=== PATIENT | male | born 1950 | race Caucasian/White ===

== ENCOUNTER 2020-03-05 11:38 | Observation (INO) | payer MEDICARE ==
[~2020-03-05] VITALS: Ht 185.5 cm; Wt 78.9 kg
--- NOTE | 2020-03-05 11:55 | ED General ---
General Stated Complaint: SYNCOPE Source of Information: Patient Exam Limitations: No Limitations History of Present Illness Date Seen by Provider: Mar 05, 2020 Time Seen by Provider: 11:50 Initial Comments To ER by EMS from [facility] with reports of syncopal event. He was feeling fine, unloading his own groceries when he had a syncopal events, awakened on the ground. EMS arrived and found him to be in atrial fibrillation with rapid ventricular response, hypertensive. Mentation was normal. He was brought to the emergency room. He does not have a family physician, does not take any medications.Drinks 3-4 mixed drinks per day. States he feels back to normal now. Timing/Duration: 1/2 Hour Associated Systoms: Denies Symptoms Allergies and Home Medications Allergies Coded Allergies: No Known Allergies (Verified Allergy, Unknown, 09/24/05) Patient Home Medication List Home Medication List Reviewed: Yes Review of Systems Review of Systems Constitutional: see HPI EENTM: see HPI Respiratory: no symptoms reported Cardiovascular: see HPI; No chest pain, No palpitations; syncope Genitourinary: no symptoms reported Musculoskeletal: no symptoms reported Skin: no symptoms reported Psychiatric/Neurological: No Symptoms Reported Hematologic/Lymphatic: No Symptoms Reported Immunological/Allergic: no symptoms reported Physical Exam Vital Signs Vital Signs - First Documented 03/05/20 11:39 Temp 35.8 Pulse 126 Resp 40 B/P (MAP) 195/123 (147) Pulse Ox 99 O2 Delivery Room Air Capillary Refill : Height, Weight, BMI Height: '" Weight: lbs. oz. kg; BMI Method:Stated General Appearance: No Apparent Distress, WD/WN, Thin, Other (alert and orient ed, hypertensive at 196/119, hr 110 sinus with multifocal pvc) Eyes: Bilateral Eye Normal Inspection, Bilateral Eye PERRL, Bilateral Eye EOMI Neck: Full Range of Motion, Normal Inspection Respiratory: No Accessory Muscle Use, No Respiratory Distress Cardiovascular: Normal Peripheral Pulses, Irregularly Irregular Gastrointestinal: Non Tender, Soft Extremity: Normal Capillary Refill, Normal Inspection Neurologic/Psychiatric: Alert, Oriented x3 Skin: Normal Color, Warm/Dry Progress/Results/Core Measures Suspected Sepsis SIRS Temperature: Pulse: Respiratory Rate: Laboratory Tests 03/05/20 11:40: White Blood Count 9.6 Blood Pressure / Mean: Laboratory Tests 03/05/20 11:40: Creatinine 1.03, INR Comment 1.0, Platelet Count 252, Total Bilirubin 2.7H Results/Orders Lab Results Laboratory Tests Test 03/05/20 11:40 Range/Units White Blood Count 9.6 4.3-11.0 10^3/uL Red Blood Count 4.48 4.30-5.52 10^6/uL Hemoglobin 15.4 13.3-17.7 g/dL Hematocrit 45 40-54 % Mean Corpuscular Volume 101 H 80-99 fL Mean Corpuscular Hemoglobin 34 25-34 pg Mean Corpuscular Hemoglobin Concent 34 32-36 g/dL Red Cell Distribution Width 13.2 10.0-14.5 % Platelet Count 252 130-400 10^3/uL Mean Platelet Volume 9.7 9.0-12.2 fL Immature Granulocyte % (Auto) 0 % Neutrophils (%) (Auto) 62 42-75 % Lymphocytes (%) (Auto) 26 12-44 % Monocytes (%) (Auto) 9 0-12 % Eosinophils (%) (Auto) 2 0-10 % Basophils (%) (Auto) 1 0-10 % Neutrophils # (Auto) 5.9 1.8-7.8 10^3/uL Lymphocytes # (Auto) 2.5 1.0-4.0 10^3/uL Monocytes # (Auto) 0.8 0.0-1.0 10^3/uL Eosinophils # (Auto) 0.2 0.0-0.3 10^3/uL Basophils # (Auto) 0.1 0.0-0.1 10^3/uL Immature Granulocyte # (Auto) 0.0 0.0-0.1 10^3/uL Prothrombin Time 13.8 12.2-14.7 SEC INR Comment 1.0 0.8-1.4 Activated Partial Thromboplast Time 24 24-35 SEC Sodium Level 139 135-145 MMOL/L Potassium Level 3.3 L 3.6-5.0 MMOL/L Chloride Level 101 98-107 MMOL/L Carbon Dioxide Level 23 21-32 MMOL/L Anion Gap 15 H 5-14 MMOL/L Blood Urea Nitrogen 10 7-18 MG/DL Creatinine 1.03 0.60-1.30 MG/DL Estimat Glomerular Filtration Rate > 60 BUN/Creatinine Ratio 10 Glucose Level 130 H 70-105 MG/DL Calcium Level 9.5 8.5-10.1 MG/DL Corrected Calcium 9.3 8.5-10.1 MG/DL Magnesium Level 1.8 1.6-2.4 MG/DL Total Bilirubin 2.7 H 0.1-1.0 MG/DL Aspartate Amino Transf (AST/SGOT) 23 5-34 U/L Alanine Aminotransferase (ALT/SGPT) 13 0-55 U/L Alkaline Phosphatase 89 40-136 U/L Myoglobin 129.8 H 10.0-92.0 NG/ML Troponin I < 0.028 <0.028 NG/ML B-Type Natriuretic Peptide 186.8 H <100.0 PG/ML Total Protein 7.9 6.4-8.2 GM/DL Albumin 4.3 3.2-4.5 GM/DL Serum Alcohol < 10 <10 MG/DL My Orders Orders - LUIS MARQUEZ APRN Ct Head Wo-R/O Stroke (03/05/20 11:40) Cbc With Automated Diff (03/05/20 11:48) Comprehensive Metabolic Panel (03/05/20 11:48) Alcohol (03/05/20 11:48) Magnesium (03/05/20 11:48) Chest 1 View, Ap/Pa Only (03/05/20 11:48) Ekg Tracing (03/05/20 11:48) Myoglobin Serum (03/05/20 11:48) Protime With Inr (03/05/20 11:48) Partial Thromboplastin Time (03/05/20 11:48) O2 (03/05/20 11:48) Monitor-Rhythm Ecg Trace Only (03/05/20 11:48) Lipid Panel (03/06/20 06:00) Ed Iv/Invasive Line Start (03/05/20 11:48) BNP (03/05/20 11:48) Troponin I (03/05/20 11:48) Aspirin Chewable Tablet (Baby Aspirin Ch (03/05/20 12:00) Metoprolol Tartrate Injection (Lopressor (03/05/20 12:00) Magnesium 1 Gm/100 Ml Ivpb (Magnesium Mcfarland (03/05/20 12:00) Metoprolol Tartrate Injection (Lopressor (03/05/20 12:15) Echo W Doppler/Color Flow (03/05/20 12:27) Medications Given in ED Current Medications Medications Dose Ordered Sig/Clint Route Start Time Stop Time Status Last Admin Dose Admin Aspirin 324 mg ONCE ONCE PO 03/05/20 12:00 03/05/20 12:01 DC 03/05/20 11:57 324 MG Magnesium Sulfate/ Dextrose 100 ml @ 100 mls/hr ONCE ONCE IV 03/05/20 12:00 03/05/20 12:59 03/05/20 12:30 100 MLS/HR Metoprolol Tartrate 5 mg ONCE ONCE IV 03/05/20 12:00 03/05/20 12:01 DC 03/05/20 11:57 5 MG Metoprolol Tartrate 5 mg ONCE ONCE IV 03/05/20 12:15 03/05/20 12:16 DC 03/05/20 12:30 5 MG Vital Signs/I&O 03/05/20 11:39 Temp 35.8 Pulse 126 Resp 40 B/P (MAP) 195/123 (147) Pulse Ox 99 O2 Delivery Room Air Capillary Refill : Point of Care Testing Finger Stick Blood Glucose: 119 Blood Glucose Action Taken: rn notified Diagnostic Imaging Diagonstic Imaging: Xray Plain Films/CT/US/NM/MRI: chest Comments NAME: ROBIN DAWKINS [facility] REC#: [id number] PT STATUS: REG ER : 1950 PHYSICIAN: LUIS MARQUEZ APRN ADMIT DATE: 03/05/20/ER Draft Date of Exam:03/05/20 CT HEAD WO-R/O STROKE PROCEDURE: CT head without contrast. TECHNIQUE: Multiple contiguous axial images were obtained through the brain without the use of intravenous contrast. Auto Exposure Controls were utilized during the CT exam to meet ALARA standards for radiation dose reduction. DATE: March 05, 2020. COMPARISON: None. INDICATION: 70-year-old male, hypertension, syncope. FINDINGS: The ventricles and cerebral spinal fluid spaces are of normal size and configuration for the patient's age. There is no mass effect or midline shift. There is no acute intracranial hemorrhage. There is no abnormal extra-axial fluid collection. The visualized portions of the paranasal sinuses, mastoid air cells and middle ears are well aerated. IMPRESSION: 1. No identified acute intracranial abnormality. Dictated on workstation # [id number] Dict: 03/05/20 1210 Trans: 03/05/20 1220 CV [id number] Interpreted by: TASHI MORENO MD Electronically signed by: Departure Communication (Admissions) Time/Spoke to Admitting Phy: 12:[address] arthur and Dr. Bonds. Dr. Hill has seen the patient in the emergency room.. After 10 mg of IV Lopressor blood pressure down to 186/110 heart rate down to 85 still sinus rhythm with less frequent ectopy. He continues to deny headache neck pain or chest pain. He agrees to being admitted to the hospital. Given his alcohol use I will put him on CIWA protocol though it may be unnecessary. Impression Primary Impression: Syncope Additional Impression: Multifocal PVCs Disposition: ADMITTED INPATIENT Condition: Stable Admissions Decision to Admit Reason: Admit from ER (General) Decision to Admit/Date: Mar 05, 2020 Time/Decision to Admit Time: 12:40 Departure-Patient Inst. Referrals: NO,LOCAL PHYSICIAN (PCP/Family) Primary Care Physician LUIS MARQUEZ APRN Mar 05, 2020 11:55
[2020-03-05] MEDS ORDERED: MAGNESIUM 1 GM/100 ML IVPB 100 ML IV ONE (12:00)
[2020-03-05] MEDS ORDERED: meTOprolol 5 MG/5 ML (LOPRESSOR) VIAL IV ONE ×3 (12:00→13:00)
[2020-03-05] MEDS ORDERED: ASPIRIN 81 MG CHEW (CHILDREN'S ASA) PO ONE (12:00)
[2020-03-05 12:03] LABS: BASOPHILS # (AUTO) 0.1 10^3/uL (0.0-0.1); BASOPHILS % (AUTO) 1 % (0-10); EOSINOPHILS # (AUTO) 0.2 10^3/uL (0.0-0.3); EOSINOPHILS % (AUTO) 2 % (0-10); HEMATOCRIT 45 % (40-54); HEMOGLOBIN 15.4 g/dL (13.3-17.7); LYMPHOCYTES # (AUTO) 2.5 10^3/uL (1.0-4.0); LYMPHOCYTES % (AUTO) 26 % (12-44); MEAN CORPUSCULAR HEMOGLOBIN 34 pg (25-34); MEAN CORPUSCULAR HGB CONC 34 g/dL (32-36); MEAN CORPUSCULAR VOLUME 101 fL (80-99); MEAN PLATELET VOLUME 9.7 fL (9.0-12.2); MONOCYTES # (AUTO) 0.8 10^3/uL (0.0-1.0); MONOCYTES % (AUTO) 9 % (0-12); NEUTROPHILS # (AUTO) 5.9 10^3/uL (1.8-7.8); NEUTROPHILS % (AUTO) 62 % (42-75); PLATELET COUNT 252 10^3/uL (130-400); WHITE BLOOD COUNT 9.6 10^3/uL (4.3-11.0)
--- NOTE | 2020-03-05 12:09 | NUR ---
SPOKE WITH PTS ANGELLA AND UPDATED HER ON PT STATUS.
[2020-03-05 12:14] LABS: PROTHROMBIN TIME PATIENT 13.8 SEC (12.2-14.7)
[2020-03-05 12:15] LABS: ALBUMIN 4.3 GM/DL (3.2-4.5); CHLORIDE 101 MMOL/L (98-107); POTASSIUM 3.3 MMOL/L (3.6-5.0); SODIUM 139 MMOL/L (135-145)
[2020-03-05 12:16] LABS: CALCIUM 9.5 MG/DL (8.5-10.1)
[2020-03-05 12:17] LABS: GLUCOSE 130 MG/DL (70-105)
[2020-03-05 12:18] LABS: CARBON DIOXIDE 23 MMOL/L (21-32); TOTAL PROTEIN 7.9 GM/DL (6.4-8.2)
[2020-03-05 12:19] LABS: BILIRUBIN,TOTAL 2.7 MG/DL (0.1-1.0)
--- NOTE | 2020-03-05 12:20 | Diagnostic Imaging Report ---
PROCEDURE: CT head without contrast. TECHNIQUE: Multiple contiguous axial images were obtained through the brain without the use of intravenous contrast. Auto Exposure Controls were utilized during the CT exam to meet ALARA standards for radiation dose reduction. DATE: March 05, 2020. COMPARISON: None. INDICATION: 70-year-old male, hypertension, syncope. FINDINGS: The ventricles and cerebral spinal fluid spaces are of normal size and configuration for the patient's age. There is no mass effect or midline shift. There is no acute intracranial hemorrhage. There is no abnormal extra-axial fluid collection. The visualized portions of the paranasal sinuses, mastoid air cells and middle ears are well aerated. IMPRESSION: 1. No identified acute intracranial abnormality. Dictated by: Dictated on workstation # [id number]
[2020-03-05 12:21] LABS: ALKALINE PHOSPHATASE 89 U/L (40-136); CREATININE SERUM 1.03 MG/DL (0.60-1.30); GFR ESTIMATED > 60; MAGNESIUM 1.8 MG/DL (1.6-2.4)
[2020-03-05 12:22] LABS: BUN/CREATININE RATIO 10
[2020-03-05 12:24] LABS: ALANINE AMINOTRANSFERASE 13 U/L (0-55)
--- NOTE | 2020-03-05 12:29 | Diagnostic Imaging Report ---
PATIENT HISTORY: Chest pain. TECHNIQUE: Single frontal view of the chest. COMPARISON: None FINDINGS: The lung volumes are normal. No focal consolidation is seen. No large pleural effusion or pneumothorax is seen. The cardiomediastinal silhouette is normal in size and contour. No acute osseous abnormality is seen. IMPRESSION: No acute pulmonary abnormality seen. Dictated by: Dictated on workstation # [id number]
[2020-03-05] MEDS ORDERED: KCL 20 MEQ TAB (K-DUR) PO ONE (13:30)
--- NOTE | 2020-03-05 13:34 | Consultation-Cardiology ---
HPI-Cardiology Cardiology Consultation Date of Consultation 03/05/20 Date of Admission Time Seen by Provider: 13:30 Indication: syncope HPI 70 years old gentleman with no significant past medical history, was finishing up or when he was walking with his cart at the [employer] and had a syncopal episode became unresponsive, found himself on the floor, denied any seizure activity, no post ictal period or chest pain or shortness of breath no palpitation. [place] slightly lightheaded. No similar episodes in the past. On arrival to the emergency room patient was noted to have frequent premature ventricular contractions, severe hypertension. He denied any active chest pain. Home Medications & Allergies Allergies: Coded Allergies: No Known Allergies (Verified Allergy, Unknown, 09/24/05) Home Medication List Reviewed: Yes [id number] Hx Patient Social History Marital Status: Employed/Student: employed Alcohol Use: Regular Use Recreational Drug Use: No Smoking Status: Never a Smoker Recent Foreign Travel: No Recent Infectious Disease Expo: No Recent Hopitalizations: No Immunizations Up To Date Tetanus Booster (TDap): Unknown Past Medical History No known past medical history, does not follow up with a primary care physician Family Medical History Family Medical Hx Noncontributory Review of Systems-General Review of Systems Constitutional: see HPI, malaise EENTM: see HPI, no symptoms reported Respiratory: no symptoms reported, see HPI Cardiovascular: see HPI; No chest pain, No edema, No Hx of Intervention, No palpitations; syncope; No vascular heart diseas, No other Gastrointestinal: no symptoms reported, see HPI Genitourinary: no symptoms reported Musculoskeletal: no symptoms reported, see HPI Skin: no symptoms reported, see HPI Psychiatric/Neurological: No Symptoms Reported, See HPI Reviewed Test Results Reviewed Test Results Lab Laboratory Tests Test 03/05/20 11:40 Range/Units White Blood Count 9.6 4.3-11.0 10^3/uL Red Blood Count 4.48 4.30-5.52 10^6/uL Hemoglobin 15.4 13.3-17.7 g/dL Hematocrit 45 40-54 % Mean Corpuscular Volume 101 H 80-99 fL Mean Corpuscular Hemoglobin 34 25-34 pg Mean Corpuscular Hemoglobin Concent 34 32-36 g/dL Red Cell Distribution Width 13.2 10.0-14.5 % Platelet Count 252 130-400 10^3/uL Mean Platelet Volume 9.7 9.0-12.2 fL Immature Granulocyte % (Auto) 0 % Neutrophils (%) (Auto) 62 42-75 % Lymphocytes (%) (Auto) 26 12-44 % Monocytes (%) (Auto) 9 0-12 % Eosinophils (%) (Auto) 2 0-10 % Basophils (%) (Auto) 1 0-10 % Neutrophils # (Auto) 5.9 1.8-7.8 10^3/uL Lymphocytes # (Auto) 2.5 1.0-4.0 10^3/uL Monocytes # (Auto) 0.8 0.0-1.0 10^3/uL Eosinophils # (Auto) 0.2 0.0-0.3 10^3/uL Basophils # (Auto) 0.1 0.0-0.1 10^3/uL Immature Granulocyte # (Auto) 0.0 0.0-0.1 10^3/uL Prothrombin Time 13.8 12.2-14.7 SEC INR Comment 1.0 0.8-1.4 Activated Partial Thromboplast Time 24 24-35 SEC Sodium Level 139 135-145 MMOL/L Potassium Level 3.3 L 3.6-5.0 MMOL/L Chloride Level 101 98-107 MMOL/L Carbon Dioxide Level 23 21-32 MMOL/L Anion Gap 15 H 5-14 MMOL/L Blood Urea Nitrogen 10 7-18 MG/DL Creatinine 1.03 0.60-1.30 MG/DL Estimat Glomerular Filtration Rate > 60 BUN/Creatinine Ratio 10 Glucose Level 130 H 70-105 MG/DL Calcium Level 9.5 8.5-10.1 MG/DL Corrected Calcium 9.3 8.5-10.1 MG/DL Magnesium Level 1.8 1.6-2.4 MG/DL Total Bilirubin 2.7 H 0.1-1.0 MG/DL Aspartate Amino Transf (AST/SGOT) 23 5-34 U/L Alanine Aminotransferase (ALT/SGPT) 13 0-55 U/L Alkaline Phosphatase 89 40-136 U/L Myoglobin 129.8 H 10.0-92.0 NG/ML Troponin I < 0.028 <0.028 NG/ML B-Type Natriuretic Peptide 186.8 H <100.0 PG/ML Total Protein 7.9 6.4-8.2 GM/DL Albumin 4.3 3.2-4.5 GM/DL Serum Alcohol < 10 <10 MG/DL Physical Exam Physical Exam Vital Signs Vital Signs - First Documented 03/05/20 11:39 Temp 35.8 Pulse 126 Resp 40 B/P (MAP) 195/123 (147) Pulse Ox 99 O2 Delivery Room Air Capillary Refill : Less Than 3 Seconds Height, Weight, BMI Height: '" Weight: lbs. oz. kg; 21.00 BMI Method:Stated General Appearance: No Apparent Distress, WD/WN, Thin, Other (alert and oriented, hypertensive at 196/119, hr 110 sinus with multifocal pvc) Eyes: Bilateral Eye Normal Inspection, Bilateral Eye PERRL, Bilateral Eye EOMI HEENT: PERRL/EOMI, TMs Normal, Normal ENT Inspection, Pharynx Normal, Moist Mucous Membranes Neck: Full Range of Motion, Normal Inspection Respiratory: No Accessory Muscle Use, No Respiratory Distress Cardiovascular: No Murmur, Normal Peripheral Pulses, Systolic Murmur, Other (irregular) Gastrointestinal: Non Tender, Soft Back: Normal Inspection, No CVA Tenderness, No Vertebral Tenderness Extremity: Normal Capillary Refill, Normal Inspection Neurologic/Psychiatric: Alert, Oriented x3 Skin: Normal Color, Warm/Dry Lymphatic: No Adenopathy A/P-Cardiology Admission Diagnosis Syncope Premature ventricular contractions Hypertension Hypokalemia Assessment/Plan Syncope, unknown etiology, probably hypotensive episode, underlying malignant arrhythmia cannot be excluded. We will monitor on telemetry and started on beta blockers Frequent premature ventricular contractions and ventricular couplets. Patient was noted to have hypokalemia. Will evaluate 2-D echocardiogram, replace electrolytes. Severe hypertension, started on IV beta renu I will switch him to metoprolol orally and add amlodipine and monitor blood pressure Hypokalemia, replace and monitor Alcoholism, drinks about 4 mixed drinks daily. Educated on avoiding alcohol products and we will use withdrawal protocol LUIS F MONTILLA MD Mar 05, 2020 13:34
[2020-03-05] MEDS ORDERED: LORazepam INJ 2 MG/ML (ATIVAN) VIAL IVP PRN (13:45)
--- NOTE | 2020-03-05 13:52 | NUR ---
UPDATED AGAIN AT THIS TIME BY Darien MAQRUEZ APRN.
--- NOTE | 2020-03-05 14:08 | NUR ---
ROBIN DAWKINS admitted to room 508-1, with an admitting diagnosis of SYNCOPE, on 03/05/20 from ED via , accompanied by STAFF. ROBIN DAWKINS introduced to surroundings, call light, bed controls, phone, TV, temperature control, lights, meal times, smoking policy, visitor policy, side rail policy, bathrooms and showers. Patient Rights given to patient in the handbook. ROBIN DAWKINS verbalizes understanding that [facility] is not responsible for the loss or damage to any personal effects or valuables that are kept in the patients posession during their hospitalization. The following Patient Care Plans were discussed with the PT: Discharge Planning, PAIN, SYNCOPE. ROBIN DAWKINS verbalizes understanding of Interdisciplinary Patient Education. Patient and/or family were informed about the Rapid Response Team and its purpose.
[2020-03-05 14:15] VITALS: BP 179/88
[2020-03-05] MEDS ORDERED: ONDANSETRON 4 MG/2 ML (SDV) Z0FRAN IV PRN (14:15)
[2020-03-05] MEDS ORDERED: LORazepam INJ 2 MG/ML (ATIVAN) VIAL IV PRN (14:15)
[2020-03-05] MEDS ORDERED: ANTACID SUSP 30 ML UDC (MYLANTA) PO PRN (14:15)
[2020-03-05] MEDS ORDERED: LORazepam INJ 2 MG/ML (ATIVAN) VIAL IM/IV PRN (14:15)
[2020-03-05] MEDS ORDERED: 1/2 NS IV SOLUTION 1,000 ML IV PRN (14:15)
[2020-03-05] MEDS ORDERED: SENNA W/DOCUSATE (SENOKOT S) TABLET PO PRN (14:15)
[2020-03-05] MEDS ORDERED: D5 1/2 NS 1000 ML IV SOLUTION 1,000 ML IV PRN (14:15)
[2020-03-05] MEDS ORDERED: LORazepam 1 MG (ATIVAN) TAB PO PRN (14:15)
[2020-03-05] MEDS ORDERED: ONDANSETRON 4 MG (ZOFRAN) ORAL DISSOLVE TAB SL PRN (14:15)
[2020-03-05] MEDS ORDERED: L.AC1CAP6 PO (14:45)
--- NOTE | 2020-03-05 14:46 | NUR ---
SPOKE WITH THE PT TO COMPLETE THE MED REC PT DENIES TAKING ANY PRESCRIPTION MEDICATIONS OTC MEDS: PROBIOTIC I DID INPUT THE PTS PREFERRED PHARMACY TO [facility] PER THE PTS REQUEST
[2020-03-05] MEDS: amLODIPine 5 MG (NORVASC) TAB PO SCH (15:21)
[2020-03-05] MEDS: FOLIC ACID 1 MG TAB PO SCH (15:21)
[2020-03-05] MEDS: MULTIVIT W/MINERALS TAB (THERAGRAN M) PO SCH (15:22)
[2020-03-05] MEDS: NS W/KCL 40 MEQ/L 1,000 ML IV SCH (15:22)
[2020-03-05] MEDS: THIAMINE 100 MG (VITAMIN B-1) TAB PO SCH (15:22)
[2020-03-05 16:00] VITALS: BP 179/88
[2020-03-05] MEDS ORDERED: FLU QUAD HIGH DOSE 240 MCG/0.7 ML 2020-21 (FLUZONE) IM ONE (16:30)
[2020-03-05] MEDS: MAGNESIUM OXIDE (MAG-OX)400 MG TAB PO SCH (16:59)
[2020-03-05 20:00] VITALS: BP 156/91
[2020-03-05 23:42] VITALS: BP 148/87
[2020-03-06] MEDS: NS W/KCL 40 MEQ/L 1,000 ML IV SCH ×2 (01:14→10:05)
[2020-03-06 04:02] LABS: HEMOGLOBIN 13.6 g/dL (13.3-17.7); MEAN PLATELET VOLUME 9.9 fL (9.0-12.2); WHITE BLOOD COUNT 6.4 10^3/uL (4.3-11.0)
[2020-03-06 04:17] LABS: ALBUMIN 3.4 GM/DL (3.2-4.5); CHLORIDE 108 MMOL/L (98-107); POTASSIUM 4.2 MMOL/L (3.6-5.0); SODIUM 139 MMOL/L (135-145)
[2020-03-06 04:18] LABS: CALCIUM 8.5 MG/DL (8.5-10.1)
[2020-03-06 04:19] LABS: GLUCOSE 97 MG/DL (70-105); TOTAL PROTEIN 6.4 GM/DL (6.4-8.2); TRIGLYCERIDES 57 MG/DL (<150); VLDL CHOLESTEROL 11 MG/DL (5-40)
[2020-03-06 04:20] LABS: CARBON DIOXIDE 23 MMOL/L (21-32)
[2020-03-06 04:21] LABS: BILIRUBIN,TOTAL 2.8 MG/DL (0.1-1.0)
[2020-03-06 04:23] LABS: ALKALINE PHOSPHATASE 68 U/L (40-136); GFR ESTIMATED > 60
[2020-03-06 04:24] LABS: BUN/CREATININE RATIO 10; CHOLESTEROL 174 MG/DL (< 200)
[2020-03-06 04:25] LABS: HDL CHOLESTEROL 65 MG/DL (40-60)
[2020-03-06 04:26] LABS: ALANINE AMINOTRANSFERASE 11 U/L (0-55)
[2020-03-06 04:29] VITALS: BP 163/91
[2020-03-06] MEDS: MULTIVIT W/MINERALS TAB (THERAGRAN M) PO SCH (06:49)
[2020-03-06] MEDS: FOLIC ACID 1 MG TAB PO SCH (06:49)
[2020-03-06] MEDS: THIAMINE 100 MG (VITAMIN B-1) TAB PO SCH (06:49)
--- NOTE | 2020-03-06 07:42 | Cardiology Progress Note ---
Subjective Date Seen by Provider: Mar 06, 2020 Time Seen by Provider: 07:40 Subjective/Events-last exam Patient is laying down in bed, feeling better, no new complaint Review of Systems General: No Chills, No Night Sweats, No Fatigue, No Malaise, No Appetite, No Other HEENT: No Head Aches, No Visual Changes, No Eye Pain, No Ear Pain, No Dysphasia, No Sinus Congestion, No Post Nasal Drip, No Sore Throat, No Other Pulmonary: No Dyspnea, No Cough, No Pleuritic Chest Pain, No Other Cardiovascular: No: Chest Pain, Palpitations, Orthopnea, Paroxysmal Noc. Dyspnea, Edema, Lt Headedness, Other Objective-Cardiology Exam Last Set of Vital Signs Vital Signs 03/06/20 03/06/20 08:00 08:26 Temp 36.9 Pulse 86 Resp 16 B/P (MAP) 167/90 (115) Pulse Ox 96 O2 Delivery Room Air Capillary Refill : Less Than 3 SecondsLess Than 3 Seconds I&O Intake and Output 03/06/20 00:00 Intake Total 250 ml Output Total 350 ml Balance -100 ml Intake Oral 150 ml IV Total 100 ml Output Urine Total 350 ml Daily Weight Change No No General: Alert, Oriented X3, Cooperative HEENT: Atraumatic, PERRLA Neck: Supple, No JVD, No Thyromegaly Lungs: Clear to Auscultation, Normal Air Movement Heart: Normal S1, Normal S2, No Murmurs, Other (irregular rhythm) Abdomen: Normal Bowel Sounds, Soft, No Tenderness, No Hepatosplenomegaly, No Masses Extremities: No Clubbing, No Cyanosis, No Edema, Normal Pulses, No Tenderness/Swelling Skin: No Rashes, No Breakdown, No Significant Lesion Neuro: Normal Gait, Normal Speech, Strength at 5/5 X4 Ext, Normal Tone, Sensation Intact Psych/Mental Status: Mental Status NL, Mood NL Results Lab Laboratory Tests 03/05/20 11:40 03/06/20 03:30 A/P-Cardiology Admission Diagnosis Syncope Premature ventricular contractions Hypertension Hypokalemia Assessment/Plan Syncope, unknown etiology, probably hypotensive episode, underlying malignant arrhythmia cannot be excluded. Elevated troponin, I will proceed with left heart catheterization possible PTCA Frequent premature ventricular contractions and ventricular couplets. Patient was noted to have hypokalemia. Planning to proceed with cardiac catheterization Severe hypertension, started on IV beta renu I will switch him to metoprolol orally and add amlodipine and monitor blood pressure Hypokalemia, replace and monitor Alcoholism, drinks about 4 mixed drinks daily. Educated on avoiding alcohol products and we will use withdrawal protocol Addendum on March 06, 2020 at 910 a.m. 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
--- NOTE | 2020-03-06 07:42 | Cardiac Procedure Note-CS/ASA ---
Pre-Procedure Note Pre-Op Procedure Note H&P Reviewed The H&P was reviewed, patient examined and no changes noted. Date H&P Reviewed: Mar 06, 2020 Time H&P Reviewed: 07:42 Conscious Sedation Pre-Proced Time 07:42 ASA Score 3 For ASA 3 and 4: Consider anesthesia and medical clearance. Also, for patients with a history of failed moderate sedation consider anesthesia. Airway Lungs Heart ASA score ASA 1: a normal healthy patient ASA 2: a patient with a mild systemic disease (mid diabetes, controlled hypertension, obesity x ASA 3: a patient with a severe systemic disease that limits activity (angina, COPD, prior Myocardial infarction) ASA 4: a patient with an incapacitating disease that is a constant threat to life (CHF, renal failure) ASA 5: a moribund patient not expected to survive 24 hrs. (ruptured aneurysm) ASA 6: a declared brain- patient whose organs are being harvested. For emergent operations, add the letter E after the classification Mallampati Classification Grade 3 Sedation Plan Analgesia, Amnesia, Plan communicated to team members, Discussed options with patient/fam, Discussed risks with patient/fam The patient is an appropriate candidate to undergo the planned procedure, sedation, and anesthesia. The patient immediately re-assessed prior to indication. LUIS F MONTILLA MD Mar 06, 2020 07:42
[2020-03-06] MEDS ORDERED: MIDAZOLAM 5 MG/5 ML (VERSED) VIAL ONE ×2 (07:43→08:37)
[2020-03-06] MEDS ORDERED: NS IV 1000 ML 1,000 ML ONE (07:43)
[2020-03-06] MEDS ORDERED: fentaNYL INJECTION 100 MCG/2 ML AMP ONE ×2 (07:43→08:37)
[2020-03-06] MEDS ORDERED: LIDOCAINE 1% INJ 20 ML 20 ML VIAL ONE (07:43)
[2020-03-06] MEDS ORDERED: HEParin (CATH LAB) 2,000 ML IV ONE (07:43)
[2020-03-06] MEDS ORDERED: NS IV 1000 ML 1,000 ML IV SCH ×2 (07:45→09:07)
[2020-03-06] MEDS: amLODIPine 5 MG (NORVASC) TAB PO SCH ×2 (07:57→09:42)
[2020-03-06] MEDS: MAGNESIUM OXIDE (MAG-OX)400 MG TAB PO SCH (07:57)
--- NOTE | 2020-03-06 07:58 | NUR ---
GOING FOR HEART CATH LATER TODAY. PER DR. MONTILLA, ONLY GIVE ASA THIS AM. HOLD NORVASC, TOPROL, AND OTHER MEDS.
[2020-03-06 08:00] VITALS: BP 167/90
--- NOTE | 2020-03-06 08:32 | NUR ---
DOWN TO EDGER LINER PER CART ACC BY STAFF.
[2020-03-06] MEDS ORDERED: meTOprolol 5 MG/5 ML (LOPRESSOR) VIAL ONE (08:54)
[2020-03-06] MEDS ORDERED: ASPIRIN 81 MG CHEW (CHILDREN'S ASA) PO SCH (09:00)
--- NOTE | 2020-03-06 09:11 | Cardiac Cath Report ---
Cardiac Cath Report Physician (s)/Medical Claims Assistant (s) Physician LUIS F MONTILLA MD Pre-Procedure Diagnosis Pre-Procedure Diagnosis: coronary artery disease Post-Procedure Note Procedure Start Date: Mar 06, 2020 Name of Procedure: Left heart catheterization Findings/Procedure Note PROCEDURE NOTE: 70-year-old gentleman admitted with syncope, severe hypertension, had mild elevation in troponin and frequent premature ventricular contractions. Decided to proceed with left heart catheterization. After explaining the procedure to the patient, all pros and cons were explained, all questions were answered. The patient signed the consent and then he was placed on the cardiac catheterization laboratory. Groin was prepped SL fashion local anesthesia was used. Sheath placed in the right femoral artery. Yaneli right and left catheter were used to access the coronary system. JR catheter advanced to the left ventricular cavity. Left ventriculogram was done At the end of the procedure the sheath was removed. Closure device was deployed FINDINGS: Hemodynamics LV 142/25, end-diastolic pressure of 25 Aorta 141/75 mean of 102 ANATOMY: Left Main is free of obstructive disease Left Anterior Descending is slightly tortuous with myocardial bridging in the midportion nonobstructive disease Left Circumflex is moderate in size with no obstructive disease Right Coronory Artery is dominant artery, tortuous distally with small vessel disease LV Gram was done showing normal left ventricular size, systolic function is normal ejection fraction 60 percent CONCLUSION: 1. 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 Hypertensive heart disease with normal left ventricular size and function and ejection fraction 60 percent, elevated left ventricular end-diastolic pressure DISCUSSION AND RECOMMENDATION: Maximize medical therapy with beta blockers and calcium channel blockers if tolerating it. Monitor for any malignant arrhythmia. Anesthesia Type: Conscious Sedation Estimated blood loss (mL): 25 ml Contrast Amount: 53 ml Total Radiation Dose: 463 mGy Post-Procedure Diagnosis Post-operative diagnosis: Coronary artery disease Syncope Type II myocardial infarction Malignant hypertension LUIS F MONTILLA MD Mar 06, 2020 09:11
[2020-03-06] MEDS ORDERED: PATIENT MAY USE OWN MEDS, ALL PO SCH (09:15)
[2020-03-06] MEDS ORDERED: meTOproloL SUCCINATE 50 MG (TOPROL XL) TAB PO SCH (09:15)
--- NOTE | 2020-03-06 09:42 | NUR ---
PATIENT BACK TO THE FLOOR. DR. MONTILLA HERE. TOPROL INCREASED. ORDERS TO GIVE AM NORVASC AND TOPROL NOW.
[2020-03-06 12:29] VITALS: BP 148/88
[2020-03-06] MEDS ORDERED: METO50TA7 PO (13:43)
[2020-03-06] MEDS ORDERED: AMLO-250 PO (13:43)
--- NOTE | 2020-03-06 13:51 | Discharge Summary ---
Discharge Summary Hospital Course Was the Problem List Reviewed?: Yes Problems/Dx: (1) Syncope due to orthostatic hypotension Status: Acute (2) Multifocal PVCs Status: Acute (3) HTN (hypertension) Status: Acute Qualifiers: Qualified Codes: I10 - Essential (primary) hypertension Hospital Course Date of Admission: Mar 05, 2020 at 12:35 Admission Diagnosis : syncope Family Physician/Provider: Suha,Local Physician Date of Discharge: 03/06/20 Discharge Diagnosis: syncope due to orthostatic hypotension Hospital Course: Barrington Bullock is a 70-year-old male who was admitted after a syncopal episode. His syncope was thought to be due to orthostatic hypotension. He was found to be dehydrated and was resuscitated with IV fluids. His lightheadedness and dizziness resolved. He had no further syncopal episodes. He also underwent a cardiac workup which revealed multiple premature ventricular contractions. He was started on metoprolol and this improved. His blood pressure was also elevated and he was started on amlodipine. Cardiology was consulted and assisted with his care. They performed a left heart catheterization which revealed small vessel coronary artery disease but nothing requiring intervention at this time. He was discharged home in stable condition. He should follow-up with his primary care physician in about a week. He should follow-up with cardiology as scheduled. Labs and Pending Lab Test: Laboratory Tests 03/06/20 03:30: White Blood Count 6.4, Red Blood Count 3.94L, Hemoglobin 13.6, Hematocrit 40, Mean Corpuscular Volume 102H, Mean Corpuscular Hemoglobin 35H, Mean Corpuscular Hemoglobin Concent 34, Red Cell Distribution Width 12.9, Platelet Count 181, Mean Platelet Volume 9.9, Sodium Level 139, Potassium Level 4.2, Chloride Level 108H, Carbon Dioxide Level 23, Anion Gap 8, Blood Urea Nitrogen 8, Creatinine 0.80, Estimat Glomerular Filtration Rate > 60, BUN/Creatinine Ratio 10, Glucose Level 97, Calcium Level 8.5, Corrected Calcium 9.0, Total Bilirubin 2.8H, Aspartate Amino Transf (AST/SGOT) 19, Alanine Aminotransferase (ALT/SGPT) 11, Alkaline Phosphatase 68, Troponin I 0.056H, Total Protein 6.4, Albumin 3.4, Triglycerides Level 57, Cholesterol Level 174, LDL Cholesterol Direct 110, VLDL Cholesterol 11, HDL Cholesterol 65H 03/06/20 08:00: Coronavirus (COVID-19)(PCR) [Pending] Home Meds Active Amlodipine Besylate 5 Mg Tablet 5 Mg PO DAILY 30 Days Metoprolol Succinate 50 Mg Tab.er.24h 50 Mg PO DAILY 30 Days Reported Probiotic (L.acidoph & Paracasei,B.lactis) 1 Each Capsule 1 Each PO DAILY Assessment/Pt Instructions Take medications as prescribed. Begin taking metoprolol for premature ventricular beats and high blood pressure. Begin taking amlodipine for high blood pressure. Follow-up with your primary care physician in about a week. Follow-up with cardiology in a few weeks. Return with worsening lightheadedness/dizziness or if you feel like you're getting worse. Decrease or discontinue alcohol use. Discharge Planning: <30 minutes discharge planning Discharge Instructions Discharge Diet: Low Sodium Diet Activity as Tolerated: Yes Pneumonia Vaccine Order Indica: Yes Consultations cardiology Discharge Physical Examination Vital Signs Vital Signs Date Time Temp Pulse Resp B/P (MAP) Pulse Ox O2 Delivery O2 Flow Rate FiO2 03/06/20 12:29 84 16 148/88 (108) 97 Room Air 03/06/20 08:00 36.9 General Appearance: No Apparent Distress, WD/WN Respiratory: Lungs Clear, Normal Breath Sounds, No Respiratory Distress Cardiovascular: Regular Rate, Rhythm, No Edema, No Murmur Gastrointestinal: Normal Bowel Sounds, Non Tender, Soft Extremity: Normal Inspection, Non Tender, No Pedal Edema Skin: Normal Color, Warm/Dry Neurologic/Psychiatric: Alert, Oriented x3, No Motor/Sensory Deficits, Normal Mood/Affect Allergies: Coded Allergies: NKANo Known Allergies (Verified Allergy, Unknown, 03/05/20) Discharge Summary Date of Admission Mar 05, 2020 at 12:35 Date of Discharge Discharge Date: Mar 06, 2020 Discharge Time: 13:48 Admission Diagnosis syncope Consults/Procedures Consulations Cardiology Procedures left heart catheterization Discharge Diagnosis (1) Syncope due to orthostatic hypotension Status: Acute (2) Multifocal PVCs Status: Acute (3) HTN (hypertension) Status: Acute Qualifiers: Qualified Codes: I10 - Essential (primary) hypertension Clinical Quality Measures DVT/VTE Risk/Contraindication: Risk Factor Score Per Nursin RFS Level Per Nursing on Admit: 2=Moderate HANSEL MEJIA MD Mar 06, 2020 13:51
[2020-03-06 14:18] VITALS: BP 169/80
--- NOTE | 2020-03-06 14:23 | NUR ---
WALKED IN HALLS AND TOLERATED WELL. RIGHT GROIN SOFT. NO DRAINAGE OR BRUISING NOTED. RIGHT DORSALIS PEDIS PULSE PALPABLE.
--- NOTE | 2020-03-06 14:25 | NUR ---
BP 169/80, HR 99. DR. MONTILLA NOTIFIED. OK TO [facility] [facility]. F/U IN 1-2 WEEKS.
[2020-03-06 15:28] VITALS: BP 169/80
== END 2020-03-06 15:31 | disposition home or self-care (01) ==
LOC: EDUNIT# 11:38 → ER 11:39 → CSD 12:35
PROVIDERS: ADMIT Internal Medicine; ATTEND Internal Medicine
DX: I25.10 Atherosclerotic heart disease of native coronary artery without angina pectoris (principal); I11.9 Hypertensive heart disease without heart failure; I21.A1 Myocardial infarction type 2; I08.3 Combined rheumatic disorders of mitral, aortic and tricuspid valves; E87.6 Hypokalemia; I49.3 Ventricular premature depolarization; Z79.899 Other long term (current) drug therapy; Z20.828 Contact with and (suspected) exposure to other viral communicable diseases
CPT/HCPCS: 70450; 71045; 80053 ×2; 80061; 83735; 83874; 83880; 84484 ×2; 85025; 85027; 85610; 85730; 87081; 93005; 93041; 93306; 93458; 96365; 96375; 96376; 99284; C1760; C1894; G0008; G0378; G0480; U0002; 36415; 80320; 87635; 90471; 90662

== ENCOUNTER 2020-07-22 11:16 | Emergency (ER) | payer MEDICARE ==
[~2020-07-22] VITALS: Ht 185.4 cm; Wt 81.6 kg
[~2020-07-22 11:16] MED LIST: AMLO-250 PO; L.AC1CAP6 PO; METO50TA7 PO
--- NOTE | 2020-07-22 11:19 | ED Cardiac General ---
History of Present Illness General Stated Complaint: RAPID HEART RATE Source: patient, RN/MD Exam Limitations: no limitations History of Present Illness Date Seen by Provider: Jul 22, 2020 Time Seen by Provider: 11:19 Initial Comments 70-year-old male presents with irregular rapid heart rate. Patient was following up with Dr. Bonds where he was found to be in atrial fib with RVR with a heart rate above the 150s. Patient denies any shortness of breath cough or complaints. Patient has a history of coronary artery disease right bundle branch block with frequent PVCs. Patient was sent over here for further work-up and evaluation. Patient continues to deny any symptoms. Allergies and Home Medications Allergies Coded Allergies: AMANANo Known Allergies (Verified Allergy, Unknown, 03/05/20) Home Medications Amlodipine Besylate 5 Mg Tablet, 5 MG PO DAILY Prescribed by: HANSEL MEJIA on 03/06/20 1343 Apixaban 5 Mg Tablet, 5 MG PO BID TAKE 2 TABLETS BID X 7 DAYS, THEN 1 TABLET BID Prescribed by: RHONDA MCCRARY on 07/22/20 1253 Diltiazem HCl 240 Mg Cap.er.24h, 240 MG PO DAILY Prescribed by: RHONDA MCCRARY on 07/22/20 1253 L.acidoph & Paracasei,B.lactis 1 Each Capsule, 1 EACH PO DAILY, (Reported) Metoprolol Succinate 50 Mg Tab.er.24h, 50 MG PO DAILY Prescribed by: HANSEL MEJIA on 03/06/20 1343 Patient Home Medication List Home Medication List Reviewed: Yes Review of Systems Review of Systems Constitutional: No chills, No fever EENTM: No Symptoms Reported Respiratory: No Symptoms Reported Cardiovascular: See HPI Gastrointestinal: No Symptoms Reported Genitourinary: No Symptoms Reported Musculoskeletal: no symptoms reported Skin: no symptoms reported Psychiatric/Neurological: No Symptoms Reported Endocrine: No Symptoms Reported Hematologic/Lymphatic: No Symptoms Reported Past Eisrpma-Ylvbop-Yzfjpe Hx Past Med/Social Hx: Reviewed Nursing Past Med/Soc Hx Physical Exam Vital Signs Vital Signs - First Documented 07/22/20 11:19 Temp 36.9 Pulse 151 Resp 26 B/P (MAP) 183/109 (133) Pulse Ox 96 O2 Delivery Room Air Capillary Refill : Height, Weight, BMI Height: '" Weight: lbs. oz. 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 Skin: Normal Color, Warm/Dry Progress/Results/Core Measures Results/Orders Lab Results Laboratory Tests Test 07/22/20 11:30 Range/Units White Blood Count 8.5 4.3-11.0 10^3/uL Red Blood Count 5.11 4.30-5.52 10^6/uL Hemoglobin 16.6 13.3-17.7 g/dL Hematocrit 49 40-54 % Mean Corpuscular Volume 97 80-99 fL Mean Corpuscular Hemoglobin 33 25-34 pg Mean Corpuscular Hemoglobin Concent 34 32-36 g/dL Red Cell Distribution Width 13.3 10.0-14.5 % Platelet Count 228 130-400 10^3/uL Mean Platelet Volume 9.3 9.0-12.2 fL Immature Granulocyte % (Auto) 1 % Neutrophils (%) (Auto) 80 H 42-75 % Lymphocytes (%) (Auto) 14 12-44 % Monocytes (%) (Auto) 4 0-12 % Eosinophils (%) (Auto) 0 0-10 % Basophils (%) (Auto) 1 0-10 % Neutrophils # (Auto) 6.8 1.8-7.8 10^3/uL Lymphocytes # (Auto) 1.2 1.0-4.0 10^3/uL Monocytes # (Auto) 0.4 0.0-1.0 10^3/uL Eosinophils # (Auto) 0.0 0.0-0.3 10^3/uL Basophils # (Auto) 0.0 0.0-0.1 10^3/uL Immature Granulocyte # (Auto) 0.1 0.0-0.1 10^3/uL Prothrombin Time 13.6 12.2-14.7 SEC INR Comment 1.0 0.8-1.4 Activated Partial Thromboplast Time 25 24-35 SEC Sodium Level 141 135-145 MMOL/L Potassium Level 3.4 L 3.6-5.0 MMOL/L Chloride Level 106 98-107 MMOL/L Carbon Dioxide Level 20 L 21-32 MMOL/L Anion Gap 15 H 5-14 MMOL/L Blood Urea Nitrogen 6 L 7-18 MG/DL Creatinine 0.98 0.60-1.30 MG/DL Estimat Glomerular Filtration Rate > 60 BUN/Creatinine Ratio 6 Glucose Level 148 H 70-105 MG/DL Calcium Level 9.4 8.5-10.1 MG/DL Corrected Calcium 9.0 8.5-10.1 MG/DL Magnesium Level 1.8 1.6-2.4 MG/DL Total Bilirubin 2.2 H 0.1-1.0 MG/DL Aspartate Amino Transf (AST/SGOT) 17 5-34 U/L Alanine Aminotransferase (ALT/SGPT) 9 0-55 U/L Alkaline Phosphatase 95 40-136 U/L Troponin I < 0.028 <0.028 NG/ML Total Protein 8.6 H 6.4-8.2 GM/DL Albumin 4.5 3.2-4.5 GM/DL My Orders Orders - MCCRARY,RHONDA L DO Cbc With Automated Diff (07/22/20 11:23) Comprehensive Metabolic Panel (07/22/20 11:23) Magnesium (07/22/20 11:23) Protime With Inr (07/22/20 11:23) Partial Thromboplastin Time (07/22/20 11:23) Troponin I (07/22/20 11:23) Ed Iv/Invasive Line Start (07/22/20 11:23) Ekg Tracing (07/22/20 11:23) Monitor-Rhythm Ecg Trace Only (07/22/20 11:23) Chest 1 View, Ap/Pa Only (07/22/20 11:23) Enoxaparin Injection (Lovenox Injection) (07/22/20 11:30) Diltiazem Injection (Cardizem Injection) (07/22/20 11:30) Ekg Tracing (07/22/20 11:52) Diltiazem Drip Pre-Mix (Cardizem Drip Pr (07/22/20 12:15) Ekg Tracing (07/22/20 12:37) Medications Given in ED Current Medications Medications Dose Ordered Sig/Clint Route Start Time Stop Time Status Last Admin Dose Admin Diltiazem HCl 20 mg ONCE ONCE IVP 07/22/20 11:30 07/22/20 11:31 DC 07/22/20 11:37 20 MG Enoxaparin Sodium 90 mg ONCE ONCE SC 07/22/20 11:30 07/22/20 11:31 DC 07/22/20 11:38 90 MG Vital Signs/I&O 07/22/20 11:19 Temp 36.9 Pulse 151 Resp 26 B/P (MAP) 183/109 (133) Pulse Ox 96 O2 Delivery Room Air Progress Progress Note : Time: 12:54 Progress Note Patient presented with A. fib with RVR. He was initially given a Cardizem 20 mg bolus with his heart rate dropping into the 100s to 120s with atrial fib. He was then started on a Cardizem 5 mg drip. Patient was on Cardizem drip very short period of time when he spontaneously converted to sinus rhythm. Called and discussed with Dr. Bonds. We will start him on Cardizem CD 240 mg daily and Eliquis to 5 mg twice daily. Patient will be discharged home and should follow with Dr. Bonds in 2 weeks. Initial ECG Impression Date: Jul 22, 2020 Initial ECG Impression Time: 11:21 Initial ECG Rate: 158 Initial ECG Intervals RBBB Initial ECG Impression: Atrial Fibrillation w/RVR Comment Afib w RVR, RBBB EKG #1: EKG Time: 12:04 Rate: 121 Rhythm: A Fib/Flutter Intervals RBBB ECG Impression: Atrial Fibrillation w/RVR Comment Afib, RBBB EKG #2: EKG Time: 12:41 Rhythm: Normal Sinus Intervals Sinus Rhythm, PAC, RBBB ECG Comparisson: Changed Departure Impression Primary Impression: Atrial fibrillation Qualified Codes: I48.91 - Unspecified atrial fibrillation Disposition: 01 HOME, SELF-CARE Condition: Stable Departure-Patient Inst. Patient Instructions: Atrial Fibrillation (DC) Add. Discharge Instructions: Follow-up with Dr. Bonds in 2 weeks Scripts Apixaban (Eliquis) 5 Mg Tablet 5 MG PO BID for 30 Days, #72 TAB TAKE 2 TABLETS BID X 7 DAYS, THEN 1 TABLET BID Prov: RHONDA MCCRARY DO 07/22/20 Diltiazem HCl (Cardizem Cd) 240 Mg Cap.er.24h 240 MG PO DAILY, #30 CAP Prov: RHONDA MCCRARY DO 07/22/20 Copy Copies To 1: LUIS F BONDS MD, TREVOR L DO Jul 22, 2020 11:19
[2020-07-22] MEDS ORDERED: ENOXAPARIN 100 MG/1 ML (LOVENOX) SYR SC ONE (11:30)
[2020-07-22 11:40] LABS: BASOPHILS % (AUTO) 1 % (0-10); EOSINOPHILS % (AUTO) 0 % (0-10); HEMATOCRIT 49 % (40-54); HEMOGLOBIN 16.6 g/dL (13.3-17.7); LYMPHOCYTES # (AUTO) 1.2 10^3/uL (1.0-4.0); LYMPHOCYTES % (AUTO) 14 % (12-44); MEAN CORPUSCULAR HEMOGLOBIN 33 pg (25-34); MEAN CORPUSCULAR HGB CONC 34 g/dL (32-36); MEAN CORPUSCULAR VOLUME 97 fL (80-99); MEAN PLATELET VOLUME 9.3 fL (9.0-12.2); MONOCYTES # (AUTO) 0.4 10^3/uL (0.0-1.0); MONOCYTES % (AUTO) 4 % (0-12); NEUTROPHILS # (AUTO) 6.8 10^3/uL (1.8-7.8); NEUTROPHILS % (AUTO) 80 % (42-75); PLATELET COUNT 228 10^3/uL (130-400); WHITE BLOOD COUNT 8.5 10^3/uL (4.3-11.0)
[2020-07-22 11:57] LABS: PROTHROMBIN TIME PATIENT 13.6 SEC (12.2-14.7)
[2020-07-22 12:04] LABS: ALANINE AMINOTRANSFERASE 9 U/L (0-55); ALBUMIN 4.5 GM/DL (3.2-4.5); ALKALINE PHOSPHATASE 95 U/L (40-136); BILIRUBIN,TOTAL 2.2 MG/DL (0.1-1.0); BUN/CREATININE RATIO 6; CALCIUM 9.4 MG/DL (8.5-10.1); CARBON DIOXIDE 20 MMOL/L (21-32); CHLORIDE 106 MMOL/L (98-107); CREATININE SERUM 0.98 MG/DL (0.60-1.30); GFR ESTIMATED > 60; GLUCOSE 148 MG/DL (70-105); MAGNESIUM 1.8 MG/DL (1.6-2.4); POTASSIUM 3.4 MMOL/L (3.6-5.0); SODIUM 141 MMOL/L (135-145); TOTAL PROTEIN 8.6 GM/DL (6.4-8.2)
[2020-07-22] MEDS ORDERED: dilTIAZem DRIP PRE-MIX 125 ML IV SCH (12:15)
--- NOTE | 2020-07-22 12:17 | Diagnostic Imaging Report ---
INDICATION: Rapid heart rate. Correlation is made with prior chest from 03/05/2020. FINDINGS: The heart size is normal. The pulmonary vascularity is unremarkable. The lungs are clear. No infiltrate, effusion or pneumothorax is detected. IMPRESSION: No acute cardiopulmonary process is detected. Dictated by: Dictated on workstation # [id number]
[2020-07-22] MEDS ORDERED: APIX5TAB PO (12:53)
[2020-07-22] MEDS ORDERED: DILT240C86 PO (12:53)
[2020-07-22 13:02] VITALS: BP 147/86
== END 2020-07-22 13:02 | disposition home or self-care (01) ==
LOC: EDUNIT# 11:16 → ER 11:19
DX: I48.20 Chronic atrial fibrillation, unspecified (principal); I10 Essential (primary) hypertension; Z79.01 Long term (current) use of anticoagulants
CPT/HCPCS: 36415; 71045; 80053; 83735; 84484; 85025; 85610; 85730; 93005; 93041

== ENCOUNTER → 2021-04-12 | Outpatient (CLI) | payer MEDICARE ==
[~2021-04-12] MED LIST changes: +APIX5TAB PO; +DILT240C86 PO
--- NOTE | 2021-04-12 12:41 | Diagnostic Imaging Report ---
PROCEDURE: US Bilateral lower extremity arterial. TECHNIQUE: Multiple real-time grayscale images are obtained through both lower extremity arterial systems with color Doppler imaging and color Doppler spectral analysis. INDICATION: Decreased pedal pulses. FINDINGS: Real-time color Doppler imaging shows minimal atherosclerotic plaquing within the lower extremity system. There is biphasic and triphasic flow throughout with the exception of the distal dorsalis pedis artery on the left. This shows monophasic flow. The velocities are common femoral artery 120 cm/s right and left is 103 cm/s, profundus femoral right is 87 cm/s and left is 59 cm/s, superficial femoral right is 111 cm/s and left is 90 cm/s, popliteal right is 69 cm/s and left is 59 cm/s, posterior tibial right is 59 cm/s and left is 59 cm/s, dorsalis pedis right is 69 cm/s and left is dampened at 21 cm/s with monophasic flow. IMPRESSION: Major vessels are widely patent. There is hemodynamic change noted in the distal dorsalis pedis artery on the left. Dictated by: Dictated on workstation # [id number]
--- NOTE | 2021-04-12 13:50 | Diagnostic Imaging Report ---
INDICATION: Decreased pedal pulses. FINDINGS: Segmental ankle-brachial indices were performed. Right lower extremity shows ankle-brachial index of 1.2 with left measuring 1.18. The TBI is 0.92 right and 0.69 left. IMPRESSION: Normal ankle-brachial indices. Dictated by: Dictated on workstation # [id number]
== END ==
LOC: RAD 09:20
PROVIDERS: ATTEND Family Medicine
DX: R09.89 Other specified symptoms and signs involving the circulatory and respiratory systems (principal)
CPT/HCPCS: 93922; 93925

== ENCOUNTER → 2021-05-26 | Outpatient (CLI) | payer MEDICARE | LOC: CARD 08:44 | PROVIDERS: ATTEND Internal Medicine Cardiovascular Disease | DX: I08.3 Combined rheumatic disorders of mitral, aortic and tricuspid valves (principal); I11.9 Hypertensive heart disease without heart failure | CPT/HCPCS: 93306 ==

== ENCOUNTER 2022-01-29 20:29 | Inpatient (IN) | payer MEDICARE ==
[~2022-01-29] VITALS: Ht 182.9 cm; Wt 82.7 kg
[2022-01-29 20:51] LABS: BASOPHILS # (AUTO) 0.1 10^3/uL (0.0-0.1); BASOPHILS % (AUTO) 1 % (0-10); EOSINOPHILS # (AUTO) 0.2 10^3/uL (0.0-0.3); EOSINOPHILS % (AUTO) 2 % (0-10); HEMATOCRIT 40 % (40-54); HEMOGLOBIN 13.2 g/dL (13.3-17.7); LYMPHOCYTES # (AUTO) 2.4 10^3/uL (1.0-4.0); LYMPHOCYTES % (AUTO) 31 % (12-44); MEAN CORPUSCULAR HEMOGLOBIN 32 pg (25-34); MEAN CORPUSCULAR HGB CONC 33 g/dL (32-36); MEAN CORPUSCULAR VOLUME 96 fL (80-99); MONOCYTES # (AUTO) 0.7 10^3/uL (0.0-1.0); MONOCYTES % (AUTO) 9 % (0-12); NEUTROPHILS # (AUTO) 4.4 10^3/uL (1.8-7.8); NEUTROPHILS % (AUTO) 57 % (42-75); PLATELET COUNT 317 10^3/uL (130-400); WHITE BLOOD COUNT 7.8 10^3/uL (4.3-11.0)
[2022-01-29 20:57] LABS: ALBUMIN 4.1 GM/DL (3.2-4.5)
[2022-01-29 20:58] LABS: POTASSIUM 3.4 MMOL/L (3.6-5.0)
[2022-01-29 20:59] LABS: CALCIUM 9.1 MG/DL (8.5-10.1)
[2022-01-29 21:00] LABS: TOTAL PROTEIN 7.9 GM/DL (6.4-8.2)
[2022-01-29 21:01] LABS: INR 2.3 (0.8-1.4); PROTHROMBIN TIME PATIENT 25.7 SEC (12.2-14.7)
[2022-01-29 21:02] LABS: BILIRUBIN,TOTAL 1.4 MG/DL (0.1-1.0)
[2022-01-29 21:04] LABS: CREATININE SERUM 1.31 MG/DL (0.60-1.30)
[2022-01-29 21:06] LABS: BILIRUBIN,URINE NEGATIVE (NEGATIVE); CLARITY,URINE CLEAR; COLOR,URINE YELLOW; GLUCOSE, URINE (UA) NEGATIVE (NEGATIVE); KETONES,URINE NEGATIVE (NEGATIVE); LEUKOCYTE ESTERASE ,URINE NEGATIVE (NEGATIVE); NITRITE,URINE NEGATIVE (NEGATIVE); PH,URINE 5.5 (5-9); PROTEIN,URINE NEGATIVE (NEGATIVE)
--- NOTE | 2022-01-29 21:13 | ED GI ---
General Chief Complaint: Rect Problems Stated Complaint: RECTAL BLEEDING Nursing Triage Note: PATIENT STATES TONIGHT NOTICED WITH BM BRIGHT RED BLOOD ON TOILET PAPER AND IN STOOL. DENIES INJURY OR PAIN. Source of Information: Patient History of Present Illness Date Seen by Provider: Jan 29, 2022 Time Seen by Provider: 20:39 Initial Comments PT ARRIVES VIA POV FROM HOME C/O RECTAL BLEEDING STATES HE HAD BRIGHT RED BLOOD WITH WIPING AND ALSO HAD SOME BLOOD IN TOILET AT 1930--STATES HE IS STILL BLEEDING DID NOT PASS ANY STOOL WITH IT HAS HAD 2 NORMAL BM'S TODAY--NO CONSTIPATION OR DIARRHEA DENIES ANY RECTAL PAIN OR ABDOMINAL PAIN NO NAUSEA/VOMITING NO FEVER ATE DINNER AFTER HE HAD THE RECTAL BLEEDING PT IS NOT HAVING ANY DIZZINESS STATES HE HAD A FAINTING SPELL ABOUT 2 WEEKS AGO, BUT NEVER SOUGHT CARE, AND NO PROBLEMS SINCE THEN. PT HAS HAD RECTAL BLEEDING ONE OTHER TIME--A COUPLE OF MONTHS AGO--NEVER SOUGHT CARE FOR IT AT ANY TIME, AND IS NO DIFFERENT TONIGHT PT HAS NEVER HAD A COLONOSCOPY PT IS ON XARELTO FOR ATRIAL FIBRILLATION HAS TAKEN ALL OF HIS DAILY MEDICATIONS TODAY NO BLEEDING FROM OTHER SITES, OR EXCESSIVE BRUISING OR PETECHIAE/PURPURA/RASH PT HAS NOT DISCUSSED ANY OF THESE ISSUES WITH HIS PCP OR PRODUCTION ENGINE REPAIRER, OR SEEN EITHER ONE OF THEM RECENTLY. PT TESTED POSITIVE FOR COVID-19 3 WEEKS AGO--TESTED AT HEALTH DEPT NO TREATMENT, NEVER FOLLOWED UP WITH ANYONE. THOSE SYMPTOMS HAVE RESOLVED PCP: DR. DORIS REZA PRODUCTION ENGINE REPAIRER: DR. MONTILLA Allergies and Home Medications Allergies Coded Allergies: Ana Known Allergies (Verified Allergy, Unknown, 03/05/20) Patient Home Medication List Home Medication List Reviewed: Yes Amlodipine Besylate (Amlodipine Besylate) 5 Mg Tablet, 5 MG PO DAILY Prescribed by: HANSEL MEJIA on 03/06/20 1343 Apixaban (Eliquis) 5 Mg Tablet, 5 MG PO BID Prescribed by: RHONDA MCCRARY on 07/22/20 1253 Diltiazem HCl (Cardizem Cd) 240 Mg Cap.er.24h, 240 MG PO DAILY Prescribed by: RHONDA MCCRARY on 07/22/20 1253 L.acidoph & Paracasei,B.lactis (Probiotic) 1 Each Capsule, 1 EACH PO DAILY, (Reported) Entered as Reported by: THANIA CUEVAS on 03/05/20 1445 Metoprolol Succinate (Metoprolol Succinate) 50 Mg Tab.er.24h, 50 MG PO DAILY Prescribed by: HANSEL MEJIA on 03/06/20 1343 Review of Systems Review of Systems Constitutional: no symptoms reported; No chills, No diaphoresis, No dizziness, No fever, No malaise, No weakness EENTM: No Symptoms Reported Respiratory: No Symptoms Reported Cardiovascular: No Symptoms Reported Gastrointestinal: See HPI; Denies Abdominal Pain, Denies Constipated, Denies Diarrhea, Denies Nausea, Denies Poor Appetite; Rectal Bleeding; Denies Vomiting Genitourinary: No Symptoms Reported Musculoskeletal: no symptoms reported Skin: no symptoms reported Psychiatric/Neurological: No Symptoms Reported Endocrine: No Symptoms Reported Hematologic/Lymphatic: See HPI Past Iltfljo-Rmyvga-Ifjlev Hx Patient Social History Tobacco Use?: No Use of E-Cig and/or Vaping dev: No Substance use?: No Alcohol Use?: Yes Alcohol type: Hard Liquor Alcohol Frequency: Daily Immunizations Up To Date Tetanus Booster (TDap): Unknown Influenza Vaccine Up-to-Date: Yes; Up-to-Date First/Initial COVID19 Vaccinat: 2020 Second COVID19 Vaccination Arie: 2020 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 MONTILLA: CONCLUSION: 1. 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 Hypertensive heart disease with normal left ventricular size and function and ejection fraction 60 percent, elevated left ventricular end-diastolic pressure LEFT ANKLE/DISTIAL TIBIA FRACTURE WITH ORIF AND LATER HARDWARE REMOVAL [place] [address] SHETTY Surgeries: Yes Cardiac, Orthopedic, Tonsillectomy Respiratory: No Cardiac: Yes Atrial Fibrillation, Coronary Artery Disease, Hypertension Neurological: No Genitourinary: No Gastrointestinal: No Musculoskeletal: Yes Arthritis Endocrine: No HEENT: No Cancer: No Psychosocial: No Integumentary: No Blood Disorders: No Physical Exam Vital Signs Vital Signs - First Documented 01/29/22 20:40 Temp 36.9 Pulse 67 Resp 20 B/P (MAP) 168/87 (114) Pulse Ox 97 O2 Delivery Room Air Capillary Refill : Less Than 3 Seconds Height/Weight/BMI Height: '" Weight: lbs. oz. kg; 23.00 BMI Method:Stated General Appearance: WD/WN, no apparent distress, other (DOES NOT APPEAR ILL OR TO BE IN ANY DISCOMFORT OR DISTRESS) HEENT: PERRL/EOMI; No scleral icterus (R), No scleral icterus (L), No pale conjunctivae (R), No pale conjunctivae (L) Neck: normal inspection Respiratory: normal breath sounds, no respiratory distress, no accessory muscle use Cardiovascular: regular rate, rhythm, no edema, no JVD, no murmur Gastrointestinal: normal bowel sounds, non tender, soft, no organomegaly, no pulsatile mass Rectal: No hemorrhoids, No mass, No tenderness; other (GROSS BRIGHT RED BLOOD FROM RECTUM, WITH 1/2 DOLLAR SIZED CLOT OUTSIDE THE RECTUM. PT IS WEARING A LARGE PAD, WHICH IS HALF SOAKED WITH BRIGHT RED BLOOD. NO FISSURE NOTED ON EXAM. ) Extremities: normal inspection, normal capillary refill Back: no CVA tenderness Neurologic/Psychiatric: no motor/sensory deficits, alert, normal mood/affect, oriented x 3 Skin: normal color, warm/dry; No rash Progress/Results/Core Measures Results/Orders Lab Results Laboratory Tests Test 01/29/22 20:42 01/29/22 20:58 Range/Units White Blood Count 7.8 4.3-11.0 10^3/uL Red Blood Count 4.11 L 4.30-5.52 10^6/uL Hemoglobin 13.2 L 13.3-17.7 g/dL Hematocrit 40 40-54 % Mean Corpuscular Volume 96 80-99 fL Mean Corpuscular Hemoglobin 32 25-34 pg Mean Corpuscular Hemoglobin Concent 33 32-36 g/dL Red Cell Distribution Width 14.1 10.0-14.5 % Platelet Count 317 130-400 10^3/uL Mean Platelet Volume 9.0 9.0-12.2 fL Immature Granulocyte % (Auto) 1 % Neutrophils (%) (Auto) 57 42-75 % Lymphocytes (%) (Auto) 31 12-44 % Monocytes (%) (Auto) 9 0-12 % Eosinophils (%) (Auto) 2 0-10 % Basophils (%) (Auto) 1 0-10 % Neutrophils # (Auto) 4.4 1.8-7.8 10^3/uL Lymphocytes # (Auto) 2.4 1.0-4.0 10^3/uL Monocytes # (Auto) 0.7 0.0-1.0 10^3/uL Eosinophils # (Auto) 0.2 0.0-0.3 10^3/uL Basophils # (Auto) 0.1 0.0-0.1 10^3/uL Immature Granulocyte # (Auto) 0.1 0.0-0.1 10^3/uL Prothrombin Time 25.7 H 12.2-14.7 SEC INR Comment 2.3 H 0.8-1.4 Activated Partial Thromboplast Time 39 H 24-35 SEC Sodium Level 140 135-145 MMOL/L Potassium Level 3.4 L 3.6-5.0 MMOL/L Chloride Level 105 98-107 MMOL/L Carbon Dioxide Level 18 L 21-32 MMOL/L Anion Gap 17 H 5-14 MMOL/L Blood Urea Nitrogen 12 7-18 MG/DL Creatinine 1.31 H 0.60-1.30 MG/DL Estimat Glomerular Filtration Rate 58 BUN/Creatinine Ratio 9 Glucose Level 122 H 70-105 MG/DL Calcium Level 9.1 8.5-10.1 MG/DL Corrected Calcium 9.0 8.5-10.1 MG/DL Total Bilirubin 1.4 H 0.1-1.0 MG/DL Aspartate Amino Transf (AST/SGOT) 30 5-34 U/L Alanine Aminotransferase (ALT/SGPT) 24 0-55 U/L Alkaline Phosphatase 114 40-136 U/L Total Protein 7.9 6.4-8.2 GM/DL Albumin 4.1 3.2-4.5 GM/DL Urine Color YELLOW Urine Clarity CLEAR Urine pH 5.5 5-9 Urine Specific [place] 1.010 L 1.016-1.022 Urine Protein NEGATIVE NEGATIVE Urine Glucose (UA) NEGATIVE NEGATIVE Urine Ketones NEGATIVE NEGATIVE Urine Nitrite NEGATIVE NEGATIVE Urine Bilirubin NEGATIVE NEGATIVE Urine Urobilinogen 0.2 < = 1.0 MG/DL Urine Leukocyte Esterase NEGATIVE NEGATIVE Urine RBC (Auto) NEGATIVE NEGATIVE Urine RBC NONE /HPF Urine WBC RARE /HPF Urine Squamous Epithelial Cells 0-2 /HPF Urine Crystals NONE /LPF Urine Bacteria NEGATIVE /HPF Urine Casts PRESENT /LPF Urine Hyaline Casts 0-2 H /LPF Urine Mucus NEGATIVE /LPF Urine Culture Indicated NO My Orders Orders - MARY JO HEARN DO Ed Iv/Invasive Line Start (01/29/22 20:39) Monitor-Rhythm Ecg Trace Only (01/29/22 20:39) Cbc With Automated Diff (01/29/22 20:39) Comprehensive Metabolic Panel (01/29/22 20:39) Protime With Inr (01/29/22 20:39) Partial Thromboplastin Time (01/29/22 20:39) Ua Culture If Indicated (01/29/22 20:39) Ct Abdomen/Pelvis W (01/29/22 21:07) Ed Iv/Invasive Line Start (01/29/22 21:07) Lactated Ringers (Lr 1000 Ml Iv Solution (01/29/22 21:15) Iohexol Injection (Omnipaque 350 Mg/Ml 1 (01/29/22 21:15) Received Contrast (Hold Metformin- Contr (01/29/22 21:15) Ns (Ivpb) (Sodium Chloride 0.9% Ivpb Bag (01/29/22 21:15) Medications Given in ED Current Medications Medications Dose Ordered Sig/Clint Route Start Time Stop Time Status Last Admin Dose Admin Iohexol 100 ml ONCE ONCE IV 01/29/22 21:15 01/29/22 21:16 DC 01/29/22 21:23 80 ML Lactated Ringer's 1,000 ml @ 0 mls/hr Q0M ONCE IV 01/29/22 21:15 01/29/22 21:16 DC 01/29/22 21:11 1,000 MLS/HR Sodium Chloride 100 ml ONCE ONCE IV 01/29/22 21:15 01/29/22 21:16 DC 01/29/22 21:23 80 ML Vital Signs/I&O 01/29/22 20:40 Temp 36.9 Pulse 67 Resp 20 B/P (MAP) 168/87 (114) Pulse Ox 97 O2 Delivery Room Air Blood Pressure Mean: 114 Progress Progress Note : Progress Note PT IS IN NSR THROUGHOUT ER STAY. NO EPISODES OF ATRIAL FIBRILLATION DURING ER STAY VITALS STABLE UNEVENTFUL ER STAY Diagnostic Imaging Comments CT ABDOMEN/PELVIS--PER RADIOLOGIST REPORT AT 2138 FINDINGS: The heart is unremarkable. Bibasilar opacities are present. The liver, spleen, pancreas, adrenal glands and kidneys have a normal appearance. The gallbladder is unremarkable. There is no pathologically enlarged mesenteric or retroperitoneal adenopathy. Small hiatal hernia is seen. The bowel loops are nondilated. Scattered diverticula are seen in the descending colon. No mass or pericolonic inflammation is seen in the rectosigmoid colon. There is no free fluid or free air. No acute osseous abnormality. There is calcified aortic atherosclerotic plaque without aneurysm. Ureters and bladder are grossly normal. Small bilateral inguinal hernias are seen. There is no free air, loculated collection or adenopathy in the pelvis. IMPRESSION: 1. No mass or pericolonic inflammation in the rectosigmoid colon. A few scattered diverticula are seen without evidence of acute diverticulitis. 2. Bibasilar opacities, which may represent atelectasis and/or infection. 3. Small hiatal hernia. Reviewed: Reviewed by Me Departure Communication (Admissions) 2138--SPOKE WITH DR. MÁRQUEZ, SURGEON, ADVISES TO ADMIT TO HOSPITALIST AND HE WILL SEE IN CONSULT. HOLD XARELTO 2140--SPOKE WITH DR. TORRES, HOSPITALIST, ACCEPTS PT FOR ADMIT Impression Primary Impression: Rectal bleeding Additional Impression: XARELTO THERAPY Disposition: ADMITTED INPATIENT Condition: Stable Admissions Decision to Admit Reason: Admit from ER (General) Decision to Admit/Date: Jan 29, 2022 Time/Decision to Admit Time: 21:40 Departure-Patient Inst. Referrals: DORIS REZA MD (PCP/Family) Primary Care Physician MARY JO HEARN DO Jan 29, 2022 21:13
[2022-01-29] MEDS ORDERED: NS 100 ML (IVPB) BAG IV ONE (21:15)
[2022-01-29] MEDS ORDERED: LACTATED RINGERS 1,000 ML IV ONE (21:15)
[2022-01-29] MEDS ORDERED: IOHEXOL 350 MG/ML 100 ML (OMNIPAQUE 350) VIAL IV ONE (21:15)
[2022-01-29] MEDS ORDERED: HOLD METFORMIN - RECEIVED CONTRAST 20 ML VIAL IV SCH (21:15)
[2022-01-29 21:16] LABS: BACTERIA,URINE NEGATIVE /HPF; HYALINE CASTS, URINE 0-2 /LPF; SQUAMOUS EPITHELIAL CELL,UR 0-2 /HPF; WBC,URINE RARE /HPF
--- NOTE | 2022-01-29 21:35 | Diagnostic Imaging Report ---
EXAMINATION: CT abdomen and pelvis with intravenous contrast. TECHNIQUE: Multiple contiguous axial images were obtained through the abdomen and pelvis after the uneventful administration of intravenous contrast. All CT scans use one or more of the following dose optimizing techniques: automated exposure control, MA and/or KvP adjustment based on patient size and exam type or iterative reconstruction. HISTORY: Rectal bleeding. COMPARISON: None available. FINDINGS: The heart is unremarkable. Bibasilar opacities are present. The liver, spleen, pancreas, adrenal glands and kidneys have a normal appearance. The gallbladder is unremarkable. There is no pathologically enlarged mesenteric or retroperitoneal adenopathy. Small hiatal hernia is seen. The bowel loops are nondilated. Scattered diverticula are seen in the descending colon. No mass or pericolonic inflammation is seen in the rectosigmoid colon. There is no free fluid or free air. No acute osseous abnormality. There is calcified aortic atherosclerotic plaque without aneurysm. Ureters and bladder are grossly normal. Small bilateral inguinal hernias are seen. There is no free air, loculated collection or adenopathy in the pelvis. IMPRESSION: 1. No mass or pericolonic inflammation in the rectosigmoid colon. A few scattered diverticula are seen without evidence of acute diverticulitis. 2. Bibasilar opacities, which may represent atelectasis and/or infection. 3. Small hiatal hernia. Dictated by: Dictated on workstation # [id number]
--- NOTE | 2022-01-29 22:48 | Tele-ICU Progress Note ---
Progress Note Came in rectal bleeding . INR 2.3. CT abdomen negative 1. GIB - rectal 2 .Afib on AC with Eliquis 3. Elevated INR 2.3 LR 1 L given. H/H at 5 am Hold eliquis Pt viewed on camera, VSS and resting comfortably on RA. d/w the bedside nurse. No request for any orders at this time. Interventions Minor- Focused Exam Height, Weight, BMI Height: '" Weight: lbs. oz. kg; 23.00 BMI Method:Stated GRETEL SPRAGUE MD Jan 29, 2022 22:48
[2022-01-29] MEDS: LACTATED RINGERS 1,000 ML IV SCH (22:53)
[2022-01-29] MEDS ORDERED: MTP100TCR PO (23:54)
[2022-01-29] MEDS ORDERED: ATOR10TA66 PO (23:54)
[2022-01-29] MEDS ORDERED: RIVA20TA PO (23:54)
[2022-01-29] MEDS ORDERED: AMIO200T65 PO (23:54)
[2022-01-30] VITALS (7 sets, daily range): BP systolic 146–204; BP diastolic 79–97
[2022-01-30 04:15] LABS: BASOPHILS % (AUTO) 1 % (0-10); EOSINOPHILS % (AUTO) 1 % (0-10); HEMATOCRIT 34 % (40-54); HEMOGLOBIN 11.1 g/dL (13.3-17.7); LYMPHOCYTES # (AUTO) 1.4 10^3/uL (1.0-4.0); LYMPHOCYTES % (AUTO) 24 % (12-44); MEAN CORPUSCULAR HEMOGLOBIN 32 pg (25-34); MEAN CORPUSCULAR HGB CONC 33 g/dL (32-36); MEAN CORPUSCULAR VOLUME 97 fL (80-99); MEAN PLATELET VOLUME 9.2 fL (9.0-12.2); MONOCYTES # (AUTO) 0.5 10^3/uL (0.0-1.0); MONOCYTES % (AUTO) 8 % (0-12); NEUTROPHILS % (AUTO) 66 % (42-75); PLATELET COUNT 243 10^3/uL (130-400)
[2022-01-30 04:34] LABS: CALCIUM 8.7 MG/DL (8.5-10.1); CREATININE SERUM 1.12 MG/DL (0.60-1.30); POTASSIUM 4.4 MMOL/L (3.6-5.0)
[2022-01-30] MEDS: LACTATED RINGERS 1,000 ML IV SCH ×3 (05:35→20:44)
--- NOTE | 2022-01-30 07:42 | Consultation - Surgery ---
MORELIA RAGSDALE 01/30/22 0742: History of Present Illness History of Present Illness Patient Consulted On(soraya/time) 01/30/22 07:36 Date Seen by Provider: Jan 30, 2022 Time Seen by Provider: 07:36 History of Present Illness Consult requested by Dr. Saavedra for bright red blood per rectum. Patient is a 71 year old male with a history of HTN and afib who presented to the ED last night with chief complaint of blood in his stool. Patient states that last night after he had a BM, he noticed that there was a significant amount of bright red blood in the bowl and on the toilet paper when he wiped. Patient states that he has had some similar episodes in the past with latest one being about a month ago, but has never had this amount of blood. Patient states that usually there is only a small amount for one or two BMs and then his symptoms would spontaneously regress. Patient denies any abdominal or rectal diogenes n, N/V, or change in BMs. On exam, patient is nontender, and has some dried blood surrounding the rectum. Patient has not had a BM since admission. Per RN, there was a small amount of blood on the sheet this morning. Allergies and Home Medications Allergies Coded Allergies: AMANANo Known Allergies (Verified Allergy, Unknown, 03/05/20) Patient Home Medication List Home Medication List Reviewed: Yes Amiodarone HCl (Amiodarone HCl) 200 Mg Tablet, 200 MG PO DAILY, (Reported) Entered as Reported by: Ewa Be on 01/29/222353 Last Action: Reviewed Atorvastatin Calcium (Atorvastatin Calcium) 10 Mg Tablet, 10 MG PO HS, (Reported) Entered as Reported by: Ewa Be on 01/29/222353 Last Action: Reviewed Diltiazem HCl (Diltiazem 24Hr ER) 240 Mg Cap.er.24h, 240 MG PO DAILY, (Reported) Entered as Reported by: THANIA CUEVAS on 01/30/22 9637 Last Action: Reviewed L.acidoph & Paracasei,B.lactis (Probiotic) 1 Each Capsule, 1 EACH PO DAILY, (Reported) Entered as Reported by: THANIA CUEVAS on 03/05/20 9773 Last Action: Reviewed Metoprolol Succinate (Metoprolol Succinate) 100 Mg Tab.er.24h, 100 MG PO DAILY, (Reported) Entered as Reported by: Ewa Be on 01/29/222353 Last Action: Reviewed Rivaroxaban (Xarelto) 20 Mg Tablet, 20 MG PO HS, (Reported) Entered as Reported by: Ewa Be on 01/29/222353 Last Action: Reviewed Discontinued Medications Amlodipine Besylate (Amlodipine Besylate) 5 Mg Tablet, 5 MG PO DAILY Discontinued Reason: No Longer Taking Prescribed by: HANSEL MEJIA on 03/06/201342 Last Action: Discontinued Apixaban (Eliquis) 5 Mg Tablet, 5 MG PO BID Discontinued Reason: No Longer Taking Prescribed by: RHONDA MCCRARY on 07/22/201252 Last Action: Discontinued Diltiazem HCl (Cardizem Cd) 240 Mg Cap.er.24h, 240 MG PO DAILY Discontinued Reason: Duplicate Order Prescribed by: RHONDA MCCRARY on 07/22/201252 Last Action: Discontinued Metoprolol Succinate (Metoprolol Succinate) 50 Mg Tab.er.24h, 50 MG PO DAILY Discontinued Reason: Provider Change Prescribed by: HANSEL MEJIA on 03/06/201342 Last Action: Discontinued Past Ugeocyd-Cxegcn-Agvuol Hx Patient Social History Smoking Status: Never a Smoker 2nd Hand Smoke Exposure: No Recent Hopitalizations: No Alcohol Use?: Yes Have you traveled recently?: No Immunizations Up To Date Tetanus Booster (TDap): Unknown Seasonal Allergies Seasonal Allergies: No Surgeries History of Surgeries: Yes Surgeries: Cardiac, Orthopedic, Tonsillectomy Respiratory History of Respiratory Disorde: No Cardiovascular History of Cardiac Disorders: Yes Cardiac Disorders: Atrial Fibrillation, Coronary Artery Disease, Hypertension Neurological History of Neurological Disord: No Genitourinary History of Genitourinary Disor: No Gastrointestinal History of Gastrointestinal Di: No Musculoskeletal History of Musculoskeletal Dis: Yes Musculoskeletal Disorders: Arthritis Endocrine History of Endocrine Disorders: No HEENT History of HEENT Disorders: No Cancer History of Cancer: No Psychosocial History of Psychiatric Problem: No Integumentary History of Skin or Integumenta: No Blood Transfusions History of Blood Disorders: No Review of Systems-General Constitutional: No chills, No fever, No weakness EENTM: No hearing loss, No ear pain, No blurred vision, No double vision Respiratory: No cough, No hemoptysis, No short of breath Cardiovascular: No chest pain, No edema Gastrointestinal: No abdominal pain, No constipation, No diarrhea Genitourinary: No dysuria, No frequency Musculoskeletal: muscle weakness, neck pain Skin: No change in color, No change in hair/nails Psychiatric/Neurological: Denies Numbness, Denies Weakness Physical Exam-General Problems Physical Exam Vital Signs Vital Signs - First Documented 01/29/22 20:40 Temp 36.9 Pulse 67 Resp 20 B/P (MAP) 168/87 (114) Pulse Ox 97 O2 Delivery Room Air Capillary Refill : Less Than 3 Seconds General Appearance: WD/WN, no apparent distress HEENT: PERRL/EOMI, pharynx normal Neck: non-tender, supple Respiratory: chest non-tender, no respiratory distress, no accessory muscle use Cardiovascular: regular rate, rhythm, no edema Gastrointestinal: non tender, soft Rectal: other (Dried blood surrounding rectum) Back: no CVA tenderness, no vertebral tenderness Extremities: non-tender, normal inspection Neurologic/Psychiatric: alert, normal mood/affect, oriented x 3 Skin: normal color, warm/dry Lymphatic: no adenopathy Data Review Labs Laboratory Tests 01/29/22 20:42: White Blood Count 7.8, Red Blood Count 4.11L, Hemoglobin 13.2L, Hematocrit 40, Mean Corpuscular Volume 96, Mean Corpuscular Hemoglobin 32, Mean Corpuscular Hemoglobin Concent 33, Red Cell Distribution Width 14.1, Platelet Count 317, Mean Platelet Volume 9.0, Immature Granulocyte % (Auto) 1, Neutrophils (%) (Auto) 57, Lymphocytes (%) (Auto) 31, Monocytes (%) (Auto) 9, Eosinophils (%) (Auto) 2, Basophils (%) (Auto) 1, Neutrophils # (Auto) 4.4, Lymphocytes # (Auto) 2.4, Monocytes # (Auto) 0.7, Eosinophils # (Auto) 0.2, Basophils # (Auto) 0.1, Immature Granulocyte # (Auto) 0.1, Prothrombin Time 25.7H, INR Comment 2.3H, Activated Partial Thromboplast Time 39H, Sodium Level 140, Potassium Level 3.4L, Chloride Level 105, Carbon Dioxide Level 18L, Anion Gap 17H, Blood Urea Nitrogen 12, Creatinine 1.31H, Estimat Glomerular Filtration Rate 58, BUN/Creatinine Ratio 9, Glucose Level 122H, Calcium Level 9.1, Corrected Calcium 9.0, Total Bilirubin 1.4H, Aspartate Amino Transf (AST/SGOT) 30, Alanine Aminotransferase (ALT/SGPT) 24, Alkaline Phosphatase 114, Total Protein 7.9, Albumin 4.1 01/29/22 20:58: Urine Color YELLOW, Urine Clarity CLEAR, Urine pH 5.5, Urine Specific [place] 1.010L, Urine Protein NEGATIVE, Urine Glucose (UA) NEGATIVE, Urine Ketones NEGATIVE, Urine Nitrite NEGATIVE, Urine Bilirubin NEGATIVE, Urine Urobilinogen 0.2, Urine Leukocyte Esterase NEGATIVE, Urine RBC (Auto) NEGATIVE, Urine RBC NONE, Urine WBC RARE, Urine Squamous Epithelial Cells 0-2, Urine Crystals NONE, Urine Bacteria NEGATIVE, Urine Casts PRESENT, Urine Hyaline Casts 0-2H, Urine Mucus NEGATIVE, Urine Culture Indicated NO 01/30/22 03:50: White Blood Count 6.0, Red Blood Count 3.48L, Hemoglobin 11.1L, Hematocrit 34L, Mean Corpuscular Volume 97, Mean Corpuscular Hemoglobin 32, Mean Corpuscular Hemoglobin Concent 33, Red Cell Distribution Width 14.0, Platelet Count 243, Mean Platelet Volume 9.2, Immature Granulocyte % (Auto) 1, Neutrophils (%) (Auto) 66, Lymphocytes (%) (Auto) 24, Monocytes (%) (Auto) 8, Eosinophils (%) (Auto) 1, Basophils (%) (Auto) 1, Neutrophils # (Auto) 4.0, Lymphocytes # (Auto) 1.4, Monocytes # (Auto) 0.5, Eosinophils # (Auto) 0.0, Basophils # (Auto) 0.0, Immature Granulocyte # (Auto) 0.0, Sodium Level 143, Potassium Level 4.4, Chloride Level 109H, Carbon Dioxide Level 23, Anion Gap 11, Blood Urea Nitrogen 9, Creatinine 1.12, Estimat Glomerular Filtration Rate 70, BUN/Creatinine Ratio 8, Glucose Level 102, Calcium Level 8.7 Assessment/Plan Assessment/Plan Assessment/Plan GI bleed HTN History of afib detention use of anticoagulants Hold Xarelto, last dose evening of 01/29 Continue IV fluids Discussed risks and benefits of colonoscopy, will plan on scheduling for Sunday, bowel prep tomorrow Currently on KEISHA Schulz DO 01/30/22 1230: History of Present Illness History of Present Illness History of Present Illness Consult requested by Dr. Jenkins for blood per rectum. Patient is a 71-year-old male who presents emergency department yesterday evening with bright red blood per rectum. He has been having it for several days particularly when he is wiping. But also having to wear a feminine pad due to the amount. Patient has had episodes where this is happened previously in the past but never did anything about it. It was not to this degree. He states he has no abdominal pain or rectal pain. Patient is on Xarelto which he has been on for over a year for A. fib. He states nothing was seems to make the bleeding better or worse. He has never had a colonoscopy. He had a CT scan just demonstrated div erticulosis and small hiatal hernia. Allergies and Home Medications Allergies Coded Allergies: Ana Known Allergies (Verified Allergy, Unknown, 03/05/20) Patient Home Medication List Home Medication List Reviewed: Yes Amiodarone HCl (Amiodarone HCl) 200 Mg Tablet, 200 MG PO DAILY, (Reported) Entered as Reported by: Ewa Be on 01/29/222353 Last Action: Reviewed Atorvastatin Calcium (Atorvastatin Calcium) 10 Mg Tablet, 10 MG PO HS, (Reported) Entered as Reported by: Ewa Be on 01/29/222353 Last Action: Reviewed Diltiazem HCl (Diltiazem 24Hr ER) 240 Mg Cap.er.24h, 240 MG PO DAILY, (Reported) Entered as Reported by: THANIA CUEVAS on 01/30/22 0986 Last Action: Reviewed L.acidoph & Paracasei,B.lactis (Probiotic) 1 Each Capsule, 1 EACH PO DAILY, (Reported) Entered as Reported by: THANIA CUEVAS on 03/05/20 1445 Last Action: Reviewed Metoprolol Succinate (Metoprolol Succinate) 100 Mg Tab.er.24h, 100 MG PO DAILY, (Reported) Entered as Reported by: Ewa Be on 01/29/222353 Last Action: Reviewed Rivaroxaban (Xarelto) 20 Mg Tablet, 20 MG PO HS, (Reported) Entered as Reported by: Ewa Be on 01/29/222353 Last Action: Reviewed Discontinued Medications Amlodipine Besylate (Amlodipine Besylate) 5 Mg Tablet, 5 MG PO DAILY Discontinued Reason: No Longer Taking Prescribed by: HANSEL MEIJA on 03/06/20 1343 Last Action: Discontinued Apixaban (Eliquis) 5 Mg Tablet, 5 MG PO BID Discontinued Reason: No Longer Taking Prescribed by: RHONDA MCCRARY on 07/22/20 1253 Last Action: Discontinued Diltiazem HCl (Cardizem Cd) 240 Mg Cap.er.24h, 240 MG PO DAILY Discontinued Reason: Duplicate Order Prescribed by: RHONDA MCCRARY on 07/22/20 1253 Last Action: Discontinued Metoprolol Succinate (Metoprolol Succinate) 50 Mg Tab.er.24h, 50 MG PO DAILY Discontinued Reason: Provider Change Prescribed by: HANSEL MEJIA on 03/06/20 1343 Last Action: Discontinued Past Xjuaxbx-Uawxwp-Zhelpz Hx Family Medical History Significant Family History: No Pertinent Family Hx Review of Systems-General Constitutional: No chills, No fever, No weakness EENTM: No hearing loss, No ear pain, No blurred vision, No double vision Respiratory: No cough, No short of breath Cardiovascular: No chest pain Gastrointestinal: No abdominal pain, No constipation, No diarrhea; melena; No nausea, No vomiting Genitourinary: No dysuria, No frequency Musculoskeletal: No back pain, No joint pain Skin: No change in color, No change in hair/nails Psychiatric/Neurological: Denies Anxiety, Denies Depressed, Denies Emotional Problems All Other Systems Reviewed Negative Unless Noted: Yes (Negative excepted noted.) Physical Exam-General Problems Physical Exam General Appearance: WD/WN, no apparent distress HEENT: PERRL/EOMI, normal ENT inspection Neck: non-tender, supple Respiratory: chest non-tender, no respiratory distress, no accessory muscle use Cardiovascular: regular rate, rhythm, no JVD Gastrointestinal: non tender, soft Back: no CVA tenderness, no vertebral tenderness Extremities: non-tender, normal inspection Neurologic/Psychiatric: alert, normal mood/affect, oriented x 3 Skin: normal color, warm/dry Lymphatic: no adenopathy Assessment/Plan Assessment/Plan Assessment/Plan GI bleed HTN History of afib detention use of anticoagulants Hold Xarelto, last dose evening of 01/29 Continue IV fluids Discussed risks and benefits of colonoscopy, will plan on scheduling for Sunday, bowel prep tomorrow Currently on clears Supervisory-Addendum Brief Verification & Attestation Participated in pt care: history, MDM, physical Personally performed: exam, history, MDM, supervision of care Care discussed with: Medical Student Procedures: n/a Results interpretation: Verified all documentation Verification and Attestation of Medical Student E/M Service A medical student performed and documented this service in my presence. I reviewed and verified all information documented by the medical student and made modifications to such information, when appropriate. I personally performed the physical exam and medical decision making. Keisha Márquez, Jan 30, 2022,12:31 MORELIA RAGSDALE Jan 30, 2022 07:42 KEISHA MÁRQUEZ DO Jan 30, 2022 12:30
[2022-01-30] MEDS: AMIODARONE 200 MG (CORDARONE) TAB PO SCH (08:37)
[2022-01-30] MEDS: meTOprolol SUCCINATE 100 MG (TOPROL XL) TAB PO SCH (08:43)
[2022-01-30] MEDS ORDERED: ONDANSETRON 4 MG (ZOFRAN) ORAL DISSOLVE TAB PO PRN (09:45)
[2022-01-30] MEDS ORDERED: diphenhydrAMINE 50 MG/ML INJ (BENADRYL) IVP PRN (09:45)
[2022-01-30] MEDS ORDERED: CALCIUM CARBONATE 500 MG (TUMS) TAB.CHEW PO PRN (09:45)
[2022-01-30] MEDS ORDERED: ONDANSETRON 4 MG/2 ML (SDV) Z0FRAN IV PRN (09:45)
[2022-01-30] MEDS ORDERED: polyethylene glycoL POWDER 17 GM (MIRALAX) PACK PO PRN (09:45)
[2022-01-30] MEDS ORDERED: BISACODYL 10 MG SUPP (DULCOLAX) PR PRN (09:45)
[2022-01-30] MEDS ORDERED: ACETAMINOPHEN 325 MG TABLET PO PRN (09:45)
[2022-01-30] MEDS ORDERED: MELATONIN 3 MG TABLET PO PRN (09:45)
[2022-01-30] MEDS ORDERED: LACTULOSE SYRUP 10GM/15ML (ENULOSE) 30ML UDC PO PRN (09:45)
[2022-01-30] MEDS ORDERED: ANTACID SUSP 30 ML UDC (MYLANTA) PO PRN (09:45)
[2022-01-30] MEDS ORDERED: diphenhydrAMINE 25 MG TAB (BENADRYL) PO PRN (09:45)
[2022-01-30] MEDS ORDERED: MILK OF MAGNESIA 400 MG/5 ML 30 ML UDC PO PRN (09:45)
[2022-01-30] MEDS ORDERED: DILT240C91 PO (09:53)
[2022-01-30] MEDS ORDERED: hydrALAZINE (APESOLINE) 20 MG/ML VIAL IV PRN (18:00)
--- NOTE | 2022-01-30 18:06 | History & Physical-Hospitalist ---
History of Present Illness HPI/Chief Complaint Barrington Bullock is a 71 year old male with PMH HTN, CAD, AFib on Xarelto, who presented with rectal bleeding. He reports having bright red blood in his stool last night. He has had this happen in the past several months ago. He denies lightheadedness or dizziness. He denies chest pain and palpitaitons. He denies shortness of breath and cough. He denies abdominal pain, nausea, vomiting, and diarrhea. Source: patient Exam Limitations: no limitations Date Seen 01/30/22 Time Seen by a Provider: 09:40 Attending Physician Miguel Lewis MD PCP Admitting Physician: Kaitlyn Saavedra MD Attending Physician: Hansel Mejia MD Referring Physician Date of Admission Jan 29, 2022 at 21:41 Home Medications & Allergies Home Medications Reviewed patient Home Medication Reconciliation performed by pharmacy medication reconciliations electromechanical technician and/or nursing. Patients Allergies have been reviewed. Allergies Allergies Coded Allergies NKANo Known Allergies (Verified Allergy, Unknown, 03/05/20) Past Ltatmps-Yrwypn-Iyzyuw Hx Patient Social History Tobacco Use?: No Smoking Status: Never a Smoker Use of E-Cig and/or Vaping dev: No Substance use?: No Alcohol Use?: Yes Alcohol type: Beer Alcohol Frequency: Daily Immunizations Up To Date First/Initial COVID19 Vaccinat: 2020 Second COVID19 Vaccination Arie: 2020 Tetanus Booster (TDap): Unknown Hepatitis A: No Hepatitis B: No Seasonal Allergies Seasonal Allergies: No Current Status Advance Directives: No Communicates: Verbally Primary Language: French Preferred Spoken Language: French Is interpretation needed?: No Sensory deficits: Vision impairment Past Medical History Surgeries: Cardiac, Orthopedic, Tonsillectomy Atrial Fibrillation, Coronary Artery Disease, Hypertension Arthritis Blood Disorders: No Family Medical History No Pertinent Family Hx Review of Systems Constitutional: no symptoms reported EENTM: no symptoms reported Respiratory: no symptoms reported Cardiovascular: no symptoms reported Gastrointestinal: other (hematochezia) Genitourinary: no symptoms reported Physical Exam Physical Exam Vital Signs Vital Signs - First Documented 01/29/22 20:40 Temp 36.9 Pulse 67 Resp 20 B/P (MAP) 168/87 (114) Pulse Ox 97 O2 Delivery Room Air Capillary Refill : Less Than 3 Seconds Height, Weight, BMI Height: '" Weight: lbs. oz. kg; 23.70 BMI Method:Stated General Appearance: No Apparent Distress, WD/WN HEENT: PERRL/EOMI, Pharynx Normal Neck: Normal Inspection, Supple Respiratory: Lungs Clear, Normal Breath Sounds, No Respiratory Distress Cardiovascular: Regular Rate, Rhythm, No Edema, No Murmur Gastrointestinal: Normal Bowel Sounds, Non Tender, Soft Extremity: Normal Inspection, No Pedal Edema Neurologic/Psychiatric: Alert, Normal Mood/Affect Skin: Normal Color, Warm/Dry Results Results/Procedures Labs Laboratory Tests 01/29/22 20:42 01/30/22 03:50 Patient resulted labs reviewed. Imaging: Reviewed Imaging Report Assessment/Plan Admission Diagnosis Acute lower GI bleeding Admission Status: Inpatient Order (span 2 midnights) Reason for Inpatient Admission: GI bleed evaluation Assessment and Plan Acute lower GI bleeding Diverticulosis Hgb 11 Surgery consulted Holding Xarelto Planning for prep tomorrow EGD/colonoscopy Sunday Transfer to 4th floor M[facility] Creatinine improving IV fluids HTN AFib Resume home meds Hold Xarelto DVT prophylaxis: SCDs Diagnosis/Problems Diagnosis/Problems (1) Rectal bleeding Status: Acute (2) Atrial fibrillation Status: Acute Qualifiers: Qualified Codes: I48.91 - Unspecified atrial fibrillation (3) HTN (hypertension) Status: Acute Qualifiers: Qualified Codes: I10 - Essential (primary) hypertension HANSEL MEJIA MD Jan 30, 2022 18:06
[2022-01-30] MEDS: AtorvaSTATin TABLET 10 MG TABLET PO SCH (20:44)
[2022-01-31] VITALS (7 sets, daily range): BP systolic 155–180; BP diastolic 76–87
[2022-01-31] MEDS: LACTATED RINGERS 1,000 ML IV SCH ×3 (04:41→20:22)
--- NOTE | 2022-01-31 07:55 | Progress Note - Surgery ---
MORELIA RAGSDALE 01/31/22 0755: Subjective Date Seen by a Provider: Jan 31, 2022 Time Seen by a Provider: 07:00 Subjective/Events-last exam Patient is awake and alert in his bed this morning, no family at bedside. Patient reports no pain, N/V. Patient has not had a BM. Per patient and RN, neither have noticed any blood on the sheets or around the rectum. Review of Systems General: No Chills, No Night Sweats HEENT: No Head Aches, No Visual Changes, No Eye Pain Pulmonary: No Dyspnea, No Cough Cardiovascular: No: Chest Pain, Palpitations, Orthopnea Gastrointestinal: No: Nausea, Vomiting, Abdominal Pain Genitourinary: No Dysuria, No Frequency Musculoskeletal: No: neck pain, shoulder pain Neurological: No: Weakness, Numbness, Incoordination Objective Exam Vital Signs Date Time Temp Pulse Resp B/P (MAP) Pulse Ox O2 Delivery O2 Flow Rate FiO2 01/31/22 07:29 36.4 53 18 165/85 (111) 99 Room Air 01/31/22 03:40 36.4 54 20 155/76 (102) 98 Room Air 01/31/22 00:25 36.4 56 18 164/77 (106) 95 Room Air 01/30/22 20:44 Room Air 01/30/22 19:43 36.2 58 18 172/80 (110) 99 Room Air 01/30/22 15:33 36.5 57 18 170/85 (113) 98 Room Air 01/30/22 12:25 57 178/89 (118) 01/30/22 12:00 36.6 60 24 204/97 (132) 97 Room Air 01/30/22 09:00 Room Air 01/30/22 08:00 58 29 151/81 (104) 95 Room Air I & O 01/31/22 07:00 Intake Total 1690 ml Output Total 3325 ml Balance -1635 ml Capillary Refill : Less Than 3 Seconds General Appearance: No Apparent Distress, WD/WN HEENT: PERRL/EOMI, Pharynx Normal Neck: Normal Inspection, Supple Respiratory: Lungs Clear, Normal Breath Sounds, No Respiratory Distress Cardiovascular: Regular Rate, Rhythm, No Edema, No Murmur Gastrointestinal: non tender, soft Extremity: Normal Inspection, No Pedal Edema Neurologic/Psychiatric: Alert, Normal Mood/Affect Skin: Normal Color, Warm/Dry Lymphatic: No Adenopathy Results Lab Laboratory Tests 01/31/22 05:18: Hemoglobin 13.0L, Hematocrit 39L Assessment/Plan Assessment/Plan Assessment/Plan GI bleed HTN History of afib care home use of anticoagulants Hold Xarelto, last dose evening of 01/29 Continue IV fluids Discussed risks and benefits of colonoscopy, scheduled for tomorrow, bowel prep today Currently on clears KEISHA COLLINS DO 01/31/22 1631: Subjective Subjective/Events-last exam Patient doing okay today. Hgb stable. Had bm and had bright red blood. No abdominal pain. No new complaints. Denies n/v fever sweats chills shortness of breath or chest pain. Tolerating clears. 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 I reviewed and verified all information documented by the medical student and made modifications to such information, when appropriate. I personally performed the physical exam and medical decision making. Keisha Collins, Jan 31, 2022,16:31 MORELIA RAGSDALE Jan 31, 2022 07:55 KEISHA COLLINS DO Jan 31, 2022 16:31
[2022-01-31 08:49] LABS: CALCIUM 9.4 MG/DL (8.5-10.1); CREATININE SERUM 1.1 MG/DL (0.60-1.30); POTASSIUM 4.1 MMOL/L (3.6-5.0)
[2022-01-31] MEDS: AMIODARONE 200 MG (CORDARONE) TAB PO SCH (09:14)
[2022-01-31] MEDS: meTOprolol SUCCINATE 100 MG (TOPROL XL) TAB PO SCH (09:18)
[2022-01-31] MEDS ORDERED: GOLYTELY POWDER 4000 ML BTL PO NR (16:00)
--- NOTE | 2022-01-31 16:31 | Progress Note - Hospitalist ---
Subjective HPI/CC On Admission Date Seen by Provider: Jan 31, 2022 Time Seen by Provider: 10:10 Barrington Bullock is a 71 year old male with PMH HTN, CAD, AFib on Xarelto, who presented with rectal bleeding. He reports having bright red blood in his stool last night. He has had this happen in the past several months ago. He denies li ghtheadedness or dizziness. He denies chest pain and palpitaitons. He denies shortness of breath and cough. He denies abdominal pain, nausea, vomiting, and diarrhea. Subjective/Events-last exam He had a bloody bowel movement this morning. He is not lightheaded or dizzy. He denies chest pain and shortness of breath. Objective Exam Vital Signs Vital Signs Date Time Temp Pulse Resp B/P (MAP) Pulse Ox O2 Delivery O2 Flow Rate FiO2 01/31/22 15:28 36.7 52 18 180/87 (118) 97 Room Air Capillary Refill : Less Than 3 Seconds General Appearance: No Apparent Distress, WD/WN Respiratory: Lungs Clear, No Respiratory Distress Cardiovascular: Regular Rate, Rhythm, No Murmur Gastrointestinal: Normal Bowel Sounds, Soft Extremity: Normal Inspection, No Pedal Edema Neurologic/Psychiatric: Alert, Normal Mood/Affect Skin: Normal Color, Warm/Dry Results/Procedures Lab Laboratory Tests 01/31/22 05:18 Patient resulted labs reviewed. Imaging: Reviewed Imaging Report Assessment/Plan Assessment and Plan Assess & Plan/Chief Complaint Acute lower GI bleeding Diverticulosis Hgb 13 Surgery following Holding Xarelto Colon prep today EGD/colonoscopy tomorrow [facility] Creatinine improving Decrease IV fluids HTN AFib Continue home meds Hold Xarelto DVT prophylaxis: SCDs Diagnosis/Problems Diagnosis/Problems (1) Rectal bleeding Status: Acute (2) Atrial fibrillation Status: Acute Qualifiers: Qualified Codes: I48.91 - Unspecified atrial fibrillation (3) HTN (hypertension) Status: Acute Qualifiers: Qualified Codes: I10 - Essential (primary) hypertension HANSEL MEJIA MD Jan 31, 2022 16:31
[2022-01-31] MEDS: AtorvaSTATin TABLET 10 MG TABLET PO SCH (20:21)
[2022-02-01 03:43] VITALS: BP 137/76
[2022-02-01 05:24] LABS: HEMOGLOBIN 13.1 g/dL (13.3-17.7)
[2022-02-01] MEDS ORDERED: LACTATED RINGERS 1,000 ML IV STA (06:48)
--- NOTE | 2022-02-01 07:14 | Progress Note - Surgery ---
MORELIA RAGSDALE 02/01/22 0714: Subjective Date Seen by a Provider: Feb 01, 2022 Time Seen by a Provider: 07:13 Subjective/Events-last exam Patient is awake and alert in his chair this morning. Patient reports no N/V or abdominal pain. Patient reports that he is feeling well overall and is ready for his colonoscopy. Patient has no new complaints. Review of Systems General: No Chills, No Night Sweats HEENT: No Head Aches, No Visual Changes, No Eye Pain Pulmonary: No Dyspnea, No Cough Cardiovascular: No: Chest Pain, Palpitations, Orthopnea Gastrointestinal: No: Nausea, Vomiting, Abdominal Pain Genitourinary: No Dysuria, No Frequency Musculoskeletal: No: neck pain, shoulder pain Neurological: No: Weakness, Numbness, Incoordination Objective Exam Vital Signs Date Time Temp Pulse Resp B/P (MAP) Pulse Ox O2 Delivery O2 Flow Rate FiO2 02/01/22 03:43 36.3 66 18 137/76 (96) 96 Room Air 01/31/22 23:55 36.3 61 20 166/84 (111) 98 Room Air 01/31/22 21:00 Room Air 01/31/22 19:20 36.5 73 20 162/83 (109) 95 Room Air 01/31/22 15:28 36.7 52 18 180/87 (118) 97 Room Air 01/31/22 11:08 36.4 56 18 165/80 (108) 97 Room Air 01/31/22 09:00 Room Air 01/31/22 07:29 36.4 53 18 165/85 (111) 99 Room Air I & O 02/01/22 07:00 Intake Total 3660 ml Balance 3660 ml Capillary Refill : Less Than 3 Seconds General Appearance: No Apparent Distress, WD/WN HEENT: PERRL/EOMI, Normal ENT Inspection Neck: Normal Inspection, Supple Respiratory: Chest Non Tender, No Accessory Muscle Use, No Respiratory Distress Cardiovascular: Regular Rate, Rhythm, No JVD Gastrointestinal: non tender, soft Extremity: Normal Inspection, Non Tender Neurologic/Psychiatric: Alert, Oriented x3 Skin: Normal Color, Warm/Dry Lymphatic: No Adenopathy Results Lab Laboratory Tests 02/01/22 05:08: Hemoglobin 13.1L, Hematocrit 40 Assessment/Plan Assessment/Plan Assessment/Plan GI bleed HTN History of afib residential use of anticoagulants Hold Xarelto, last dose evening of 01/29 Continue IV fluids Colonoscopy scheduled for this morning t KEISHA COLLINS DO 02/01/22 0738: Subjective Subjective/Events-last exam bowel prep went well. had bleeding with it though. No abdominal pain. hgb stable. Denies n/v fever sweats chills shortness of breath or chest pain. 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 I reviewed and verified all information documented by the medical student and made modifications to such information, when appropriate. I personally performed the physical exam and medical decision making. Keisha Collins, Feb 01, 2022,07:37 MORELIA RAGSDALE Feb 01, 2022 07:14 KEISHA COLLINS DO Feb 01, 2022 07:38
[2022-02-01] MEDS ORDERED: LACTATED RINGERS 1,000 ML IV ONE (07:21)
[2022-02-01] MEDS ORDERED: PROPOFOL INJECTION 50 ML IV ONE (07:35)
[2022-02-01] MEDS ORDERED: MIDAZOLAM 2 MG/2 ML (VERSED) VIAL ONE (07:45)
[2022-02-01 08:15] VITALS: BP 116/68
[2022-02-01 08:20] VITALS: BP 114/66
--- NOTE | 2022-02-01 08:23 | Progress Note-Post Operative ---
Post-Operative Progess Note Surgeon (s)/Windows Architect (s) Surgeon KEISHA MÁRQUEZ DO Windows Architect: na Pre-Operative Diagnosis lower gi bleed Post-Operative Diagnosis diverticulosis, colon polyps Procedure & Operative Findings Date of Procedure 02/01/22 Procedure Performed/Findings colonoscopy c snare polypectomy x 2 and holli inking sigmoid polyp site Anesthesia Type per mda Estimated Blood Loss Estimated blood loss (mL): none Specimens/Packing Specimens Removed transverse polyp, sigmoid polyp KEISHA MÁRQUEZ DO Feb 01, 2022 08:23
[2022-02-01 08:25] VITALS: BP 124/72
[2022-02-01 08:45] VITALS: BP 168/85
[2022-02-01] MEDS: meTOprolol SUCCINATE 100 MG (TOPROL XL) TAB PO SCH (09:16)
[2022-02-01] MEDS: AMIODARONE 200 MG (CORDARONE) TAB PO SCH (09:16)
--- NOTE | 2022-02-01 10:17 | Anesthesia-General Post-Op ---
MAC Patient Condition Mental Status/LOC: Same as Preop Cardiovascular: Satisfactory Nausea/Vomiting: Absent Respiratory: Satisfactory Pain: Controlled Complications: Absent Post Op Complications Complications None Follow Up Care/Instructions Patient Instructions None needed. Anesthesiology Discharge Order Discharge Order Patient was doing well after the procedure with no complaints, stable vital signs, no apparent adverse anesthesia problems. No complications reported per nursing. SAUNDRA REYNOSO DO Feb 01, 2022 10:17
[2022-02-01 12:03] VITALS: BP 168/85
--- NOTE | 2022-02-01 17:01 | Discharge Summary ---
Discharge Summary Hospital Course Problems/Dx: (1) Acute lower GI bleeding Status: Acute (2) Rectal bleeding Status: Acute (3) Colon polyp Status: Acute (4) Atrial fibrillation Status: Acute Qualifiers: Qualified Codes: I48.91 - Unspecified atrial fibrillation (5) HTN (hypertension) Status: Acute Qualifiers: Qualified Codes: I10 - Essential (primary) hypertension Hospital Course Date of Admission: Jan 29, 2022 at 21:41 Admission Diagnosis : Bright red blood per rectum Family Physician/Provider: Miguel Reza MD Date of Discharge: 02/01/22 Discharge Diagnosis: Acute lower GI bleeding due to colon polyp Hospital Course: Barrington Bullock is a 71 year old male with AFib on Xarelto who presented with bright red blood per rectum. Surgery was consulted and he was prepped for a colonoscopy. His hemoglobin remained stable. He was found to have a large pedunculated colon polyp which was removed and the site was tattooed. After a d iscussion with surgery, the decision was made to hold his anticoagulation for 4 days, resuming Sunday. He was scheduled to follow up with Dr. Reza and Dr. Collins. He was discharged home in stable condition. Labs and Pending Lab Test: Laboratory Tests 02/01/22 05:08: Hemoglobin 13.1L, Hematocrit 40 Home Meds Active Reported Diltiazem 24Hr ER (Diltiazem HCl) 240 Mg Cap.er.24h 240 Mg PO DAILY Xarelto (Rivaroxaban) 20 Mg Tablet 20 Mg PO HS Atorvastatin Calcium 10 Mg Tablet 10 Mg PO HS Metoprolol Succinate 100 Mg Tab.er.24h 100 Mg PO DAILY Amiodarone HCl 200 Mg Tablet 200 Mg PO DAILY Probiotic (L.acidoph & Paracasei,B.lactis) 1 Each Capsule 1 Each PO DAILY Assessment/Pt Instructions See instructions Discharge Planning: >30 minutes discharge planning Discharge Instructions Discharge Diet: Low Sodium Diet Activity as Tolerated: Yes Consultations Surgery Discharge Physical Examination Vital Signs Vital Signs Date Time Temp Pulse Resp B/P (MAP) Pulse Ox O2 Delivery O2 Flow Rate FiO2 02/01/22 12:03 36.3 52 18 168/85 99 Room Air 0.00 General Appearance: No Apparent Distress, WD/WN Respiratory: Lungs Clear, No Respiratory Distress Cardiovascular: Regular Rate, Rhythm, No Murmur Gastrointestinal: Normal Bowel Sounds, Soft Extremity: Normal Inspection, No Pedal Edema Skin: Normal Color, Warm/Dry Neurologic/Psychiatric: Alert, Normal Mood/Affect Allergies: Coded Allergies: NKANo Known Allergies (Verified Allergy, Unknown, 03/05/20) Copy Copies To 1: MIGUEL REZA MD Discharge Summary Date of Admission Jan 29, 2022 at 21:41 Date of Discharge Feb 01, 2022 at 12:00 Discharge Date: Feb 01, 2022 Discharge Time: 12:00 Admission Diagnosis Acute lower GI bleeding Consults/Procedures Consulations Surgery Discharge Diagnosis Acute lower GI bleeding Colon polyp Diverticulosis MABLE HTN AFib (1) Acute lower GI bleeding Status: Acute (2) Rectal bleeding Status: Acute (3) Colon polyp Status: Acute (4) Atrial fibrillation Status: Acute Qualifiers: Qualified Codes: I48.91 - Unspecified atrial fibrillation (5) HTN (hypertension) Status: Acute Qualifiers: Qualified Codes: I10 - Essential (primary) hypertension HANSEL MEJIA MD Feb 01, 2022 16:52
--- NOTE | 2022-02-01 19:28 | OPERATIVE REPORT ---
DATE OF SERVICE: 02/01/2022 PREOPERATIVE DIAGNOSIS: Lower gastrointestinal bleed. POSTOPERATIVE DIAGNOSES: Colon polyp x2, diverticulosis. PROCEDURE: Colonoscopy with snare polypectomy x2 and Mago inking of sigmoid pedunculated polyp. SURGEON: Keisha Collins DO ANESTHESIA: Per . ESTIMATED BLOOD LOSS: None. COMPLICATIONS: None. INDICATIONS: The patient is a 71-year-old male who presented with bright red blood per rectum. He was discussed risks and benefits of having colonoscopy for further evaluation. He understands risks and benefits and wishes to proceed. Consent was signed in the chart. DESCRIPTION OF PROCEDURE: The patient was taken to the endoscopy suite, placed in left lateral recumbent position. Timeout was performed. A digital rectal exam was performed. No palpable polyps, masses or ulcerations. Scope was inserted in the rectum, advanced all the way to the cecum with minimal difficulty. Prep was adequate. Scope was slowly retracted back. No polyps, masses or ulcerations in the cecum, ascending colon. In the transverse colon, a small polyp was present, which snare polypectomy was performed. Scope was then continuously retracted back. No polyps, masses or ulcerations within the transverse and descending colon. In the sigmoid colon, large pedunculated polyp present. Distal to this area, Mago ink tattoo was performed. Snare was inserted and incorporated around the polyp was pedunculated. Snare polypectomy was performed. This was then retrieved. The scope was then inserted back through the rectum into the sigmoid colon where the polyp was present. The scope was then slowly retracted back. No polyps, masses or ulcerations within the remainder of sigmoid colon. Once in the rectum, scope was retroflexed noting no other pathology. Scope was returned to its normal position, slowly withdrawn until completely removed. The patient tolerated procedure well without any complications, taken to recovery room in stable condition. RECOMMENDATIONS: The patient will await pathology. Recommend repeat colonoscopy likely in 6 to 12 months for reevaluation. No active bleeding, but I suspect this was from the larger sigmoid polyp. Job ID: [id number] DocumentID: [id number] Dictated Date: 02/01/2022 11:47:59 Typesetting Machine Operator/Tender Date: 02/01/2022 19:28:20 Dictated By: KEISHA COLLINS DO
== END 2022-02-01 12:00 | disposition home or self-care (01) | DRG 394 ==
LOC: EDUNIT# 20:29 → ER 20:31 → ICU 21:41 → 4TH 01-30 11:18
PROVIDERS: ADMIT Family Medicine; ATTEND Internal Medicine
PROC: 0DBL8ZX Excision of Transverse Colon, Via Natural or Artificial Opening Endoscopic, Diagnostic (ICD-10-PCS; 2022-02-01)
PROC: 0DBN8ZX Excision of Sigmoid Colon, Via Natural or Artificial Opening Endoscopic, Diagnostic (ICD-10-PCS; principal; 2022-02-01 07:33)
DX: K63.5 Polyp of colon (principal); K92.2 Gastrointestinal hemorrhage, unspecified; N17.9 Acute kidney failure, unspecified; I48.91 Unspecified atrial fibrillation; K57.90 Diverticulosis of intestine, part unspecified, without perforation or abscess without bleeding; I25.10 Atherosclerotic heart disease of native coronary artery without angina pectoris; I10 Essential (primary) hypertension; H54.7 Unspecified visual loss; M19.91 Primary osteoarthritis, unspecified site; Z79.01 Long term (current) use of anticoagulants; Z86.16 Personal history of COVID-19
CPT/HCPCS: 36415; 74177; 80048; 80053; 81000; 85014; 85018; 85025; 85610; 85730; 93005; 93041

== ENCOUNTER → 2022-02-21 | Outpatient (CLI) | payer MEDICARE ==
[~2022-02-21] MED LIST changes: +AMIO200T65 PO; +ATOR10TA66 PO; +DILT240C91 PO; +MTP100TCR PO; +RIVA20TA PO
--- NOTE | 2022-02-21 13:57 | Diagnostic Imaging Report ---
PROCEDURE: CT head without contrast. TECHNIQUE: Multiple contiguous axial images were obtained through the brain without the use of intravenous contrast. Auto Exposure Controls were utilized during the CT exam to meet ALARA standards for radiation dose reduction. INDICATION: Fall striking the right head, confusion, now with blurred vision. COMPARISON: Exam compared with head CT from 03/05/2020. FINDINGS: CT HEAD: There is no intracranial hemorrhage, hydrocephalus, cerebral edema, mass, or mass effect. There is no hemorrhage. There are no abnormal extra-axial collections. There is no pneumocephalus. No skull fracture deformity. Mastoids and middle ear cavities are clear. At the most caudal aspect of the field of view of this exam, we can see a partially visualized right orbital floor fracture with trace right orbital emphysema with overlying preseptal soft tissue swelling. There is partially visualized right maxillary hemo-sinus. No obvious entrapment but there may be some caudal herniation of extraocular fat within the bony defect. As the injury is incompletely included in the [id number] properly oriented for head CT, I would suggest facial CT as further evaluation. The remaining bony structures are visualized, nonacute. IMPRESSION: 1. Right orbital floor fracture with right maxillary hemo-sinus, only partially visualized at the caudal aspect of this exam, dedicated facial CT recommended as further evaluation. 2. No calvarial fracture or intracerebral hemorrhage. Dictated by: Dictated on workstation # [id number]
== END ==
LOC: RAD 13:06
PROVIDERS: ATTEND Family Medicine
DX: S02.31XA Fracture of orbital floor, right side, initial encounter for closed fracture (principal)
CPT/HCPCS: 36415; 70450; 83880

== ENCOUNTER 2022-05-02 18:19 | Emergency (ER) | payer MEDICARE ==
[~2022-05-02] VITALS: Ht 185 cm; Wt 77.0 kg
--- NOTE | 2022-05-02 18:54 | ED General ---
General Chief Complaint: Rect Problems Stated Complaint: RECTAL BLEEDING Nursing Triage Note: PT REPORTS TO ED WITH SPOUSE WITH C/O ONE TIME RECTAL BLEEDING TODAY. REPORTS HE NOTED IT WHEN WIPING. PT AND SPOUSE AMB. TO ROOM 03 WITHOUT DIFFICULTY. Source of Information: Patient Exam Limitations: No Limitations (CHERISE MURPHY APRN) History of Present Illness Date Seen by Provider: May 02, 2022 Time Seen by Provider: 18:45 Initial Comments 72-year-old male presents today with with complaints of rectal bleeding. Patient reports there was a moderate amount when he went to the bathroom earlier. Patient states it was only on the toilet paper not in the toilet. Patient reports the bleeding has stopped. Patient states that he was seen by Dr. Collins in February and had polyps removed due to rectal bleeding. Patient denies any lightheadedness/dizziness. Patient denies any fever/chills. Denies abdominal pain, chest pain, shortness of breath. Associated Systoms: Denies Symptoms (CHERISE MURPHY APRN) Allergies and Home Medications Allergies Coded Allergies: AMANANo Known Allergies (Verified Allergy, Unknown, 03/05/20) Patient Home Medication List Home Medication List Reviewed: Yes (CHERISE MURPHY APRN) Amiodarone HCl (Amiodarone HCl) 200 Mg Tablet, 200 MG PO DAILY, (Reported) Entered as Reported by: Ewa Be on 01/29/222353 Atorvastatin Calcium (Atorvastatin Calcium) 10 Mg Tablet, 10 MG PO HS, (Reported) Entered as Reported by: Ewa Be on 01/29/22 235 Diltiazem HCl (Diltiazem 24Hr ER) 240 Mg Cap.er.24h, 240 MG PO DAILY, (Reported) Entered as Reported by: THANIA CUEVAS on 01/30/22 0953 L.acidoph & Paracasei,B.lactis (Probiotic) 1 Each Capsule, 1 EACH PO DAILY, (Reported) Entered as Reported by: THANIA CUEVAS on 03/05/20 1445 Metoprolol Succinate (Metoprolol Succinate) 100 Mg Tab.er.24h, 100 MG PO DAILY, (Reported) Entered as Reported by: Ewa Be on 01/29/22 2354 Rivaroxaban (Xarelto) 20 Mg Tablet, 20 MG PO HS, (Reported) Entered as Reported by: Ewa Be on 01/29/22 0811 Review of Systems Review of Systems Constitutional: see HPI (CHERISE MURPHY APRN) Past Nduokgf-Mpmscy-Rvyaoy Hx Patient Social History Tobacco Use?: No Use of E-Cig and/or Vaping dev: No Substance use?: No Alcohol Use?: Yes Alcohol type: Hard Liquor Alcohol Frequency: Daily Pt feels they are or have been: No (CHERISE MURPHY APRN) Immunizations Up To Date Tetanus Booster (TDap): Unknown Influenza Vaccine Up-to-Date: Yes; Up-to-Date First/Initial COVID19 Vaccinat: 2020 Second COVID19 Vaccination Arie: 2020 Third COVID19 Vaccination Date: 2021 COVID19 Vaccine Engraver Picture: MAREK (CHERISE MURPHY APRN) Seasonal Allergies Seasonal Allergies: No (CHERISE MUPRHY APRN) Past Medical History Surgery/Hospitalization HX: HTN, AFIB, CADCARDIAC CATH-NO INTERVENTION 03/06/[address] MONTILLA:CONCLUSION:1. 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 Hypertensive heart disease with normal left ventricular size andfunction and ejection fraction 60 percent, elevated left ventricularend-diastolic pressureLEFT ANKLE/DISTIAL TIBIA FRACTURE WITH ORIF AND LATER HARDWARE REMOVAL [id number] BY DR. SHETTY COLONOSCOPY 02/2022 Surgeries: Yes Cardiac, Orthopedic, Tonsillectomy Respiratory: No Cardiac: Yes Atrial Fibrillation, Coronary Artery Disease, Hypertension Neurological: No Genitourinary: No Gastrointestinal: No Musculoskeletal: Yes Arthritis Endocrine: No HEENT: No Cancer: No Psychosocial: No Integumentary: No Blood Disorders: No (CHERISE MURPHY APRN) Family Medical History No Pertinent Family Hx (CHERISE MURPHY APRN) Physical Exam Vital Signs Vital Signs - First Documented 05/02/22 18:30 Temp 36.3 Pulse 61 Resp 18 B/P (MAP) 183/94 (123) Pulse Ox 100 O2 Delivery Room Air (NADIYA,MARY JO K DO) Vital Signs Capillary Refill : Less Than 3 Seconds (CHERISE MURPHY APRN) Height, Weight, BMI Height: '" Weight: lbs. oz. kg; 22.00 BMI Method:Stated General Appearance: No Apparent Distress, WD/WN Neck: Normal Inspection, Supple Respiratory: Lungs Clear, Normal Breath Sounds, No Accessory Muscle Use, No Respiratory Distress Cardiovascular: Regular Rate, Rhythm, No Edema, No Gallop, No JVD, No Murmur Rectal: Normal Rectal Tone, Heme Positive Stool, Hemorrhoids, Other (stool light brown in color) (CHERISE MURPHY APRN) Progress/Results/Core Measures Suspected Sepsis SIRS Temperature: Pulse: 61 Respiratory Rate: 18 Laboratory Tests 05/02/22 18:50: White Blood Count 7.0 Blood Pressure 183 /94 Mean: 123 Laboratory Tests 05/02/22 18:50: Creatinine 1.23, Platelet Count 265, Total Bilirubin 1.2H (CHERISE MURPHY APRN) Results/Orders Lab Results Laboratory Tests Test 05/02/22 18:50 Range/Units White Blood Count 7.0 4.3-11.0 10^3/uL Red Blood Count 3.76 L 4.30-5.52 10^6/uL Hemoglobin 11.7 L 13.3-17.7 g/dL Hematocrit 35 L 40-54 % Mean Corpuscular Volume 94 80-99 fL Mean Corpuscular Hemoglobin 31 25-34 pg Mean Corpuscular Hemoglobin Concent 33 32-36 g/dL Red Cell Distribution Width 13.2 10.0-14.5 % Platelet Count 265 130-400 10^3/uL Mean Platelet Volume 9.4 9.0-12.2 fL Immature Granulocyte % (Auto) 1 % Neutrophils (%) (Auto) 65 42-75 % Lymphocytes (%) (Auto) 25 12-44 % Monocytes (%) (Auto) 7 0-12 % Eosinophils (%) (Auto) 2 0-10 % Basophils (%) (Auto) 1 0-10 % Neutrophils # (Auto) 4.5 1.8-7.8 10^3/uL Lymphocytes # (Auto) 1.7 1.0-4.0 10^3/uL Monocytes # (Auto) 0.5 0.0-1.0 10^3/uL Eosinophils # (Auto) 0.2 0.0-0.3 10^3/uL Basophils # (Auto) 0.1 0.0-0.1 10^3/uL Immature Granulocyte # (Auto) 0.1 0.0-0.1 10^3/uL Sodium Level 138 135-145 MMOL/L Potassium Level 3.0 L 3.6-5.0 MMOL/L Chloride Level 106 98-107 MMOL/L Carbon Dioxide Level 20 L 21-32 MMOL/L Anion Gap 12 5-14 MMOL/L Blood Urea Nitrogen 14 7-18 MG/DL Creatinine 1.23 0.60-1.30 MG/DL Estimat Glomerular Filtration Rate 62 BUN/Creatinine Ratio 11 Glucose Level 111 H 70-105 MG/DL Calcium Level 9.0 8.5-10.1 MG/DL Corrected Calcium 8.8 8.5-10.1 MG/DL Total Bilirubin 1.2 H 0.1-1.0 MG/DL Aspartate Amino Transf (AST/SGOT) 29 5-34 U/L Alanine Aminotransferase (ALT/SGPT) 26 0-55 U/L Alkaline Phosphatase 89 40-136 U/L Total Protein 7.6 6.4-8.2 GM/DL Albumin 4.2 3.2-4.5 GM/DL (NADIYA,MARY JO K DO) Vital Signs/I&O 05/02/22 05/02/22 18:30 20:29 Temp 36.3 36.3 Pulse 61 62 Resp 18 16 B/P (MAP) 183/94 (123) 182/92 Pulse Ox 100 97 O2 Delivery Room Air Room Air (NADIYA,MARY JO K DO) Vital Signs/I&O Capillary Refill : Less Than 3 Seconds (CHERISE MURPHY APRN) Blood Pressure Mean: 123 Progress Note #1: Time: 18:48 Progress Note Patient seen and evaluated for rectal bleeding. Fecal occult positive. Possible contamination due to blood on outside of rectum. Stool appeared light brown in color. CBC, CMP ordered Progress Note #2: Time: 20:05 Progress Note Lab results discussed with patient. Instructed patient to call Dr. Collins's office in the morning for follow-up. Patient given return precautions including dizziness/lightheadedness, increased rectal bleeding. Progress Note #3: Time: 20:30 Progress Note Nurse brought to my attention the patient's elevated blood pressure. Providers reassessed patient. Systolic blood pressure has been in the 170s, 180s. Patient denies any dizziness, blurry vision, headache. Offered to give patient medications to reduce blood pressure tonight. Patient said he would rather go home and follow-up with his primary. Patient instructed to check blood pressure twice a day instead of just in the morning and to keep a record to take to his primary care provider. Instructed to and return to the ER if blood pressure elevated and he has a headache, blurred vision, dizziness, or chest pain. (CHERISE MURPHY APRN) Departure Impression Primary Impression: Rectal bleeding Disposition: HOME, SELF-CARE Condition: Stable Departure-Patient Inst. Referrals: DORIS REZA MD (PCP/Family) Primary Care Physician Patient Instructions: Hemorrhoids (DC) Add. Discharge Instructions: Call Dr. Collins's office in the morning to schedule follow-up. May need to have hemorrhoid cauterized. Return for any new or concerning symptoms, dizziness/lightheadedness, increased/uncontrolled rectal bleeding. All discharge instructions reviewed with patient and/or family. Voiced understanding. ATTENDING PHYSICIAN NOTE: I WAS PHYSICALLY PRESENT ER PHYSICIAN, BUT I WAS NOT INVOLVED IN ANY DECISION MAKING OR ANY CARE OF THIS PATIENT, AND I AM NOT COLLABORATING PHYSICIAN. (MARY JO HEARN DO) CHERISE MURPHY APRN May 02, 2022 18:54 MARY JO HEARN DO May 03, 2022 21:25
[2022-05-02 19:05] LABS: BASOPHILS # (AUTO) 0.1 10^3/uL (0.0-0.1); BASOPHILS % (AUTO) 1 % (0-10); EOSINOPHILS # (AUTO) 0.2 10^3/uL (0.0-0.3); EOSINOPHILS % (AUTO) 2 % (0-10); HEMATOCRIT 35 % (40-54); HEMOGLOBIN 11.7 g/dL (13.3-17.7); LYMPHOCYTES # (AUTO) 1.7 10^3/uL (1.0-4.0); LYMPHOCYTES % (AUTO) 25 % (12-44); MEAN CORPUSCULAR HEMOGLOBIN 31 pg (25-34); MEAN CORPUSCULAR HGB CONC 33 g/dL (32-36); MEAN CORPUSCULAR VOLUME 94 fL (80-99); MEAN PLATELET VOLUME 9.4 fL (9.0-12.2); MONOCYTES # (AUTO) 0.5 10^3/uL (0.0-1.0); MONOCYTES % (AUTO) 7 % (0-12); NEUTROPHILS # (AUTO) 4.5 10^3/uL (1.8-7.8); NEUTROPHILS % (AUTO) 65 % (42-75); PLATELET COUNT 265 10^3/uL (130-400)
[2022-05-02 19:37] LABS: ALBUMIN 4.2 GM/DL (3.2-4.5); BILIRUBIN,TOTAL 1.2 MG/DL (0.1-1.0); CREATININE SERUM 1.23 MG/DL (0.60-1.30); TOTAL PROTEIN 7.6 GM/DL (6.4-8.2)
[2022-05-02] MEDS ORDERED: KCL 20 MEQ TAB (K-DUR) PO ONE (19:45)
[2022-05-02 20:29] VITALS: BP 182/92
== END 2022-05-02 20:29 | disposition home or self-care (01) ==
LOC: EDUNIT# 18:19 → ER 18:20
DX: K62.5 Hemorrhage of anus and rectum (principal); I11.9 Hypertensive heart disease without heart failure
CPT/HCPCS: 36415; 80053; 82274; 85025

== ENCOUNTER → 2022-05-19 | Outpatient (CLI) | payer MEDICARE | LOC: CARD 08:28 | PROVIDERS: ATTEND Physician Assistant | DX: I08.0 Rheumatic disorders of both mitral and aortic valves (principal); I11.9 Hypertensive heart disease without heart failure | CPT/HCPCS: 93306 ==

== ENCOUNTER 2022-05-24 05:53 | Outpatient (CLI) | payer MEDICARE ==
[~2022-05-24] VITALS: Ht 185.4 cm; Wt 78.0 kg
[2022-05-25] MEDS ORDERED: MTP100TCR PO (12:06)
== END 2022-05-25 12:08 | disposition home or self-care (01) ==
LOC: PREOP 05:53
PROVIDERS: ATTEND Surgery
DX: Z01.818 Encounter for other preprocedural examination (principal)

== ENCOUNTER 2022-06-06 12:56 | Day surgery (SDC) | payer MEDICARE ==
[~2022-06-06] VITALS: Ht 185 cm; Wt 78.0 kg
[2022-06-06] MEDS ORDERED: LACTATED RINGERS 1,000 ML IV STA (13:02)
[2022-06-06 13:19] VITALS: BP 183/100
--- NOTE | 2022-06-06 13:53 | Progress Note-Pre Operative ---
Pre-Operative Progress Note Date of Available H&P: May 22, 2022 Date H&P Reviewed: Jun 06, 2022 Time H&P Reviewed: 13:53 History & Physical: H&P Reviewed, Patient Examed, No changes noted Pre-Operative Diagnosis: rectal bleeding KEISHA MÁRQUEZ DO Jun 06, 2022 13:53
[2022-06-06] MEDS ORDERED: PROPOFOL INJECTION 50 ML IV ONE (16:03)
--- NOTE | 2022-06-06 16:27 | Discharge Inst-Simple/Standard ---
Discharge Inst-Standard Patient Instructions/Follow Up Plan of Care/Instructions/FU: Dennis 1 year. Any issues before that be seen at that time. Activity as Tolerated: Yes Discharge Diet: Regular Diet KEISHA MÁRQUEZ DO Jun 06, 2022 16:27
[2022-06-06 16:30] VITALS: BP 116/68
[2022-06-06 16:34] VITALS: BP 116/68
[2022-06-06 16:52] VITALS: BP 116/68
--- NOTE | 2022-06-06 16:55 | Anesthesia-General Post-Op ---
MAC Patient Condition Mental Status/LOC: Same as Preop Cardiovascular: Satisfactory Nausea/Vomiting: Absent Respiratory: Satisfactory Pain: Controlled Complications: Absent Post Op Complications Complications None Follow Up Care/Instructions Patient Instructions None needed. Anesthesiology Discharge Order Discharge Order Patient is doing well and ready for discharge to home with no complaints, stable vital signs, no apparent adverse anesthesia problems. No complications reported per nursing. SAUNDRA REYNOSO DO Jun 06, 2022 16:54
--- NOTE | 2022-06-07 01:06 | OPERATIVE REPORT ---
DATE OF SERVICE: 06/06/2022 PREOPERATIVE DIAGNOSIS: Rectal bleeding. POSTOPERATIVE DIAGNOSES: Diverticulosis, internal hemorrhoids. PROCEDURE: Colonoscopy. SURGEON: Keisha Collins DO. ANESTHESIA: Per MDA. ESTIMATED BLOOD LOSS: None. COMPLICATIONS: None. INDICATIONS: The patient is a 72-year-old male with history of large polyp. He has had some recurrent bleeding. He understands risks and benefits of the procedure and wishes to proceed. Consent was signed in chart. DESCRIPTION OF PROCEDURE: The patient was taken to the endoscopy suite and placed in left lateral recumbent position. A timeout was performed. Digital rectal exam was performed. Some internal hemorrhoids, possible healing area of posterior fissure. No palpable polyps, masses or ulcerations. Scope was inserted into the rectum and advanced all the way to the cecum with minimal difficulty. Prep was adequate. Scope was slowly retracted back. No polyps, masses or ulcerations within the cecum, ascending, transverse, descending and sigmoid colon. The area of tattoo was noted and no evidence of any recurrence present. Scope was then continuously retracted back into the rectum where it was also retroflexed, noting some slight internal hemorrhoids. Scope was returned to its normal position, slowly withdrawn until completely removed, noting no other pathology. The patient tolerated the procedure well without any complications, taken to recovery in stable condition. RECOMMENDATIONS: Recommend repeat colonoscopy in one year to re-evaluate the area of the polyp. Any issues before that will be seen at that time. Job ID: [id number] DocumentID: [id number] Dictated Date: 06/06/2022 16:30:20 Energy Efficiency Finance Manager Date: 06/07/2022 01:05:00 Dictated By: KEISHA COLLINS DO
== END 2022-06-06 16:55 | disposition home or self-care (01) ==
LOC: ENDO 12:56
PROVIDERS: ATTEND Surgery
DX: K64.8 Other hemorrhoids (principal); K57.30 Diverticulosis of large intestine without perforation or abscess without bleeding; Z79.01 Long term (current) use of anticoagulants; Z86.010 Personal history of colon polyps